=== PATIENT | male | born 1930 | race Caucasian/White ===

== ENCOUNTER 2018-09-08 22:54 | Inpatient (IN) | payer BC ==
[~2018-09-08] VITALS: Ht 170.2 cm; Wt 69.1 kg
[2018-09-08] MEDS ORDERED: SOD CHLORIDE 0.9% 1,000 ML IV STA (23:08)
[2018-09-08] MEDS ORDERED: ONDANSETRON 4 MG INJ IV STA (23:08)
[2018-09-08] MEDS ORDERED: SODIUM CHLORIDE 0.9% 1L BAG IV* STA (23:19)
[2018-09-08] MEDS ORDERED: CEFEPIME 1GM/50 ML (PMX) 50 ML IVPB ONE (23:30)
--- NOTE | 2018-09-08 23:44 | ERD ---
ER Documentation Chief Complaint Chief Complaint theresa ra from con home for aloc, weakness, has recent dx of sepsis HPI 88-year-old man brought in by EMS from longterm for increasing weakness and lethargy and fever times 2 days. Discharged from [facility] about a week ago after being diagnosed with sepsis and UTI, he was treated with IV antibiotics at [facility] and then started on oral antibiotics in the longterm for fever yesterday. His Jason catheter was replaced about 2 weeks ago. He has had no cough, no vomiting, no complaints of chest pain or shortness of breath. Patient normally does not ambulate but daughter who is at the bedside states he normally converses more ROS All systems reviewed and are negative except as per history of present illness. Medications Home Meds Reported Medications Tramadol Hcl* (Ultram*) 50 Mg Tablet, 50 MG PO Q6H PRN for PAIN, TAB 09/09/18 Tamsulosin Hcl* (Flomax*) 0.4 Mg Cap.er.24h, 0.4 MG PO BID, CAP 09/09/18 Vitamin B Complex (B Complex # 1) 1 Each Tablet, 1 EACH PO DAILY, TAB 09/09/18 Sodium Bicarbonate (Na Bicarbonate) 650 Mg Tab, 650 MG PO TID, TAB 09/09/18 Quetiapine Fumarate* (Seroquel*) 200 Mg Tablet, 200 MG PO HS, #30 TAB 09/09/18 Quetiapine Fumarate* (Seroquel*) 25 Mg Tablet, 12.5 MG PO DAILY PRN for AGITATION, #60 TAB 09/09/18 Protein Supplement (Promod) 946 Ml Liquid, 30 ML PO TID 09/09/18 Omeprazole* (Omeprazole*) 40 Mg Capsule.dr, 40 MG PO DAILY, #30 CAP 09/09/18 Multivitamins (MVI ADULT) 10 Ml Soln, 30 ML G-TUBE DAILY 09/09/18 Multivitamins* (Theragran*) 1 Tab Tab, 1 TAB PO DAILY, TAB 09/09/18 Midodrine HCl (Midodrine HCl) 2.5 Mg Tablet, 2.5 MG PO TID, TAB 09/09/18 Metoprolol Succinate* (Toprol XL*) 25 Mg Tab.sr.24h, 12.5 MG PO DAILY, #30 TAB 09/09/18 Melatonin (MELADOX) 3 Mg Tablet.er, 3 MG G-TUBE PRN for INSOMNIA, TAB 09/09/18 Magnesium Oxide* (Magnesium Oxide*) 400 Mg Tablet, 400 MG PO BID, TAB 09/09/18 Nitrofurantoin Monohyd Macrocr* (Macrobid*) 100 Mg Capsr, 100 MG PO BID, CAP 09/09/18 Furosemide* (Furosemide*) 20 Mg Tablet, 20 MG PO DAILY, #60 TAB 09/09/18 Lactulose* (Lactulose*) 20 Gm/30 Ml Solution, 15 GM PO TID PRN for CONSTIPATION, ML 09/09/18 Folic Acid* (Folic Acid*) 1 Mg Tablet, 1 MG PO DAILY, TAB 09/09/18 Finasteride* (Finasteride*) 5 Mg Tablet, 5 MG PO DAILY, TAB 09/09/18 Donepezil* (Donepezil*) 5 Mg Tablet, 5 MG PO DAILY, #30 TAB 09/09/18 Bisacodyl* (Dulcolax*) 5 Mg Tablet.dr, 10 MG RECTAL DAILY PRN for CONSTIPATION, TAB 09/09/18 Magnesium Hydroxide* (Milk Of Magnesia*) 400 Mg/5 Ml Oral.susp, 30 ML PO DAILY PRN for CONSTIPATION, ML 09/09/18 Atorvastatin* (Atorvastatin*) 40 Mg Tablet, 20 MG PO QHS, #30 TAB 09/09/18 Aspirin* (Aspirin*) 325 Mg Tablet, 81 MG PO DAILY, TAB 09/09/18 Acetaminophen* (Acetaminophen*) 650 Mg Tablet, 650 MG PO Q6H PRN for PAIN, #30 TAB 09/09/18 Allergies Allergies: Coded Allergies: No Known Allergy (Unverified , 09/08/18) PMhx/Soc Recent sepsis, hypertension FmHx Family History: No diabetes Physical Exam Vitals Vital Signs Date Temp Pulse Resp B/P (MAP) Pulse Ox O2 O2 Flow FiO2 Time Delivery Rate 09/09/18 99.6 100 26 142/72 96 Room Air 00:28 (95) 09/09/18 Nasal 00:28 Cannula 09/08/18 99.6 110 29 134/81 93 22:59 (98) Physical Exam GENERAL: Elderly, chronically debilitated man, febrile, nontoxic in appearance HEENT: Dry mucous membranes, pink conjunctiva, no cervical spine tenderness NEURO: Alert and oriented 3, cranial nerves II through XII intact bilaterally, pupils equal round reactive to light CARDIAC: Tachycardic and regular LUNGS: Clear bilaterally no wheezing crackles or stridor ABDOMEN: Soft nontender, no guarding, no rigidity, no rebound, no psoas sign no obturator sign. SKIN: Hot and dry to touch, no abrasions, contusions, or hematomas, no lacerations, no ecchymosis, no target lesions, and without ulcers EXTREMITIES: No clubbing cyanosis or edema, calves are bilaterally symmetrical, no Homans sign, no popliteal cord sign. Distal pulses equal and bilateral PSYCH: Normal affect without agitation or irritability Result Diagram: 09/08/18230909/08/182309 Results 24 hrs Laboratory Tests Test 09/08/18 23:10 White Blood Count 10.5 10^3/ul Red Blood Count 2.75 10^6/ul Hemoglobin 8.3 g/dl Hematocrit 25.8 % Mean Corpuscular Volume 93.8 fl Mean Corpuscular Hemoglobin 30.2 pg Mean Corpuscular Hemoglobin Concent 32.2 g/dl Red Cell Distribution Width 13.7 % Platelet Count 198 10^3/UL Mean Platelet Volume 9.2 fl Immature Granulocytes % 7.400 % Neutrophils % 65.8 % Segmented Neutrophils % (Manual) 53 % Band Neutrophils % (Manual) 4 % Lymphocytes % 15.7 % Lymphocytes % (Manual) 28 % Monocytes % 9.6 % Monocytes % (Manual) 7 % Eosinophils % 1.1 % Eosinophils % (Manual) 3 % Basophils % 0.4 % Basophils % (Manual) 1 % Metamyelocytes % (manual) 1 % Myelocytes % (Manual) 3 % Nucleated Red Blood Cells % 0.5 /100WBC Immature Granulocytes # 0.780 10^3/ul Neutrophils # 6.9 10^3/ul Neutrophils # (Manual) 5.6 10^3/ul Band Neutrophils # 0.4 10^3/ul Lymphocytes (Manual) 2.9 10^3/ul Lymphocytes # 1.6 10^3/ul Monocytes # 1.0 10^3/ul Monocytes # (Manual) 0.7 10^3/ul Eosinophils # 0.1 10^3/ul Basophils # 0.0 10^3/ul Basophils # (Manual) 0.1 10^3/ul Metamyelocytes # 0.1 10^3/ul Myelocytes # 0.3 10^3/ul Nucleated Red Blood Cells # 0.1 10^3/ul Platelet Estimate NORMAL Giant Platelets 1 % Polychromasia 1+ Anisocytosis 1+ Microcytosis 1+ Sodium Level 142 mmol/L Potassium Level 5.5 mmol/L Chloride Level 100 mmol/L Carbon Dioxide Level 30 mmol/L Anion Gap 12 Blood Urea Nitrogen 111 mg/dl Creatinine 3.77 mg/dl Est Glomerular Filtrat Rate mL/min mL/min Glucose Level 132 mg/dl Calcium Level 12.0 mg/dl Total Bilirubin 0.3 mg/dl Direct Bilirubin 0.00 mg/dl Indirect Bilirubin 0.3 mg/dl Aspartate Amino Transf (AST/SGOT) 185 IU/L Alanine Aminotransferase (ALT/SGPT) 145 IU/L Alkaline Phosphatase 365 IU/L Troponin I 0.095 ng/ml Total Protein 7.0 g/dl Albumin 3.4 g/dl Globulin 3.60 g/dl Albumin/Globulin Ratio 0.94 Lipase 201 U/L Current Medications Medications Dose Sig/Hannah Start Time Status Last (Trade) Ordered Route PRN Stop Time Admin Dose Reason Admin Sodium 1,000 ml @ Q1H STAT 09/08/18 DC 09/08/18 Chloride 1,000 mls/hr IV 23:08 23:57 09/09/18 00:07 Ondansetron 4 mg ONCE STAT 09/08/18 DC 09/08/18 HCl (Zofran IV 23:08 23:56 Inj) 09/08/18 23:09 Sodium 2,400 ml BOLUS OVER 2 09/08/18 DC 09/08/18 Chloride HOURS STAT 23: 23:57 (NS) IV* 09/08/18 23:25 Cefepime HCl 50 ml @ ONCE ONCE 09/08/18 DC 09/08/18 100 mls/hr IVPB 23:30 23:56 09/08/18 23:59 Albuterol 5 mg ONCE STAT 09/09/18 DC (Proventil HHN 00:26 0.083% (Neb)) 09/09/18 00:27 Procedures/MDM IV line was established patient was placed on environmental monitoring technician rhythm strip revealed a sinus tachycardia at 110 bpm with upright P and T waves. Patient was febrile. Blood and urine cultures have been ordered results are pending I will follow-up. I suspect his abnormal vital signs are due to dehydration and not sepsis. I administered 2 L normal saline IV, ibuprofen via G-tube, cefepime 1 g IV EKG performed, read by me revealed a sinus tachycardia at 104 bpm, left axis deviation, right bundle branch block, no concerning ST elevations or depressions noted 1 view chest x-ray performed, read by me revealed a right lower lobe infiltrate, no pneumothorax, no air under the diaphragm CT scan of the abdomen and pelvis was performed,IMPRESSION: Enlarged prostate with polypoid extensions along the posterior aspect of the urinary bladder. Findings are worrisome for neoplasm. Distension of the urinary bladder with bilateral hydronephrosis and hydroureter, which may be related to outlet obstruction. Diffuse colonic stool burden, most prominent in the rectum. Sigmoid and descending colon diverticulosis. No evidence of acute diverticulitis. CBC reveals anemia with a hemoglobin of 8.3, electrolytes revealed dehydration and acute kidney injury with a BUN/creatinine of 111/3.8, potassium elevated at 5.5 liver function tests revealed transaminitis. Urine analysis is positive for infection. Patient will be admitted to [facility] for continued IV hydration and antibiotics Departure Diagnosis: Primary Impression: Acute UTI Additional Impressions: Anemia Anemia type: unspecified type Qualified Codes: D64.9 - Anemia, unspecified Dehydration Acute encephalopathy Acute kidney injury Acute hyperkalemia Condition: MELINA Goff MD Sep 08, 2018 23:44
[2018-09-09] MEDS ORDERED: ALBUTEROL 0.083% (NEB) 2.5 MG/3 ML AMP HHN STA (00:26)
[2018-09-09 04:10] VITALS: BP 121/58; PULSE 96; RESP 17
[2018-09-09 04:48] VITALS: Ht 170.2 cm; Wt 69.1 kg
[2018-09-09] MEDS ORDERED: ATOR40TA68 PO (05:30)
[2018-09-09] MEDS ORDERED: ASPI325T30 PO (05:30)
[2018-09-09] MEDS ORDERED: ACET-2047 PO (05:30)
[2018-09-09] MEDS ORDERED: FOLI-49 PO (05:35)
[2018-09-09] MEDS ORDERED: DONE5TAB7 PO (05:35)
[2018-09-09] MEDS ORDERED: MAGN400O19 PO (05:35)
[2018-09-09] MEDS ORDERED: FINA5TAB4 PO (05:35)
[2018-09-09] MEDS ORDERED: BISA-57 RECTAL (05:35)
[2018-09-09] MEDS ORDERED: NITR-58 PO (05:41)
[2018-09-09] MEDS ORDERED: MAGN400T28 PO (05:41)
[2018-09-09] MEDS ORDERED: MELA3TAB29 G-TUBE (05:41)
[2018-09-09] MEDS ORDERED: LACT20SO2 PO (05:41)
[2018-09-09] MEDS ORDERED: FURO20TA3 PO (05:41)
[2018-09-09] MEDS ORDERED: METO-335 PO (05:41)
[2018-09-09] MEDS ORDERED: MVI G-TUBE (05:45)
[2018-09-09] MEDS ORDERED: MULTI PO (05:45)
[2018-09-09] MEDS ORDERED: MIDO2.5T PO (05:45)
[2018-09-09] MEDS ORDERED: OMEP40CA6 PO (05:49)
[2018-09-09] MEDS ORDERED: PROT946L PO (05:49)
[2018-09-09] MEDS ORDERED: QUET25TA PO (05:53)
[2018-09-09] MEDS ORDERED: VITA1TAB83 PO (05:53)
[2018-09-09] MEDS ORDERED: TRAM50TA PO (05:53)
[2018-09-09] MEDS ORDERED: QUET200T PO (05:53)
[2018-09-09] MEDS ORDERED: SODI650T PO (05:53)
[2018-09-09] MEDS ORDERED: TAMS-14 PO (05:53)
[2018-09-09] MEDS ORDERED: PIPER-TAZO 3.375 GM IV (PMX) 100 ML IVPB SCH ×2 (06:00)
[2018-09-09] MEDS: PIPER-TAZO 2.25 GM (PMX) 50 ML IVPB SCH ×3 (06:31→22:07)
[2018-09-09 08:00] VITALS: BP 123/67; PULSE 97; RESP 20
[2018-09-09] MEDS ORDERED: MAGNESIUM HYDROXIDE 30ML CUP PO PRN (08:00)
[2018-09-09] MEDS ORDERED: ACETAMINOPHEN 325 MG TAB PO PRN (08:00)
[2018-09-09] MEDS ORDERED: LACTULOSE 30ML CUP PO PRN (08:00)
[2018-09-09] MEDS ORDERED: BISACODYL (EC) 5 MG TAB PO PRN (08:00)
[2018-09-09] MEDS ORDERED: MAGNESIUM HYDROXIDE 30ML CUP GTB PRN (08:16)
[2018-09-09] MEDS ORDERED: LACTULOSE 30ML CUP GTB PRN (08:16)
[2018-09-09] MEDS: MIDODRINE 2.5 MG TAB GTB SCH ×3 (09:00→18:00)
[2018-09-09] MEDS ORDERED: FUROSEMIDE 20 MG TAB GTB SCH (09:00)
[2018-09-09] MEDS ORDERED: METOPROLOL (XL) 25 MG TAB PO SCH (09:00)
[2018-09-09] MEDS: MAGNESIUM OXIDE 400 MG TAB GTB SCH ×2 (09:52→22:08)
[2018-09-09] MEDS: FINASTERIDE 5 MG TAB GTB SCH (09:52)
[2018-09-09] MEDS: DONEPEZIL 5 MG TAB GTB SCH (09:52)
[2018-09-09] MEDS: ASPIRIN 81 MG TAB GTB SCH (09:52)
[2018-09-09] MEDS: FOLIC ACID 1 MG TAB GTB SCH (09:53)
[2018-09-09] MEDS ORDERED: QUETIAPINE 25 MG TAB PO PRN (10:30)
[2018-09-09] MEDS: SOD CHLORIDE 0.9% 1,000 ML IV SCH ×2 (10:44→22:57)
[2018-09-09] MEDS: TAMSULOSIN (SR) 0.4 MG CAP PO SCH ×2 (10:44→22:07)
--- NOTE | 2018-09-09 12:31 | CONS ---
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 If Jason Cath. was blocked vs Chronic [place] - Hypercalcemia ? secondary to Underlying cancer / Dehydration - For now continue with Jason catheter - Monitor UO closely - Check URIC ACID - Check PTH - Check PHOS - Check total CK - Check FENa - Check Eosinophilia - IVF NS 0.9% continuer - Recheck Labs later today to monitor potassium - Needs work up for Neoplasm THANK YOU Camille ALCALA Consultation Date/Type/Reason Admit Date/Time Sep 09, 2018 at 00:34 Date of Consultation: Sep 09, 2018 Type of Consult - NEPHROLOGY Reason for Consultation - Acute Kidney Injury Date/Time of Note DATE: 09/09/18 TIME: 12:21 Hx of Present Illness 88-year-old man brought in by EMS from retirement for increasing weakness and lethargy and fever times 2 days. Discharged from [facility] about a week ago after being diagnosed with sepsis and UTI, he was treated with IV antibiotics at [facility] and then started on oral antibiotics in the retirement for fever yesterday. [facility] admission was for ~ 4 weeks. His Jason catheter was replaced about 2 weeks ago. According to the son he had no UO at the [facility] about 24 hours. Subjective hx not possible: pt non-verbal Constitutional: no complaints Eyes: no complaints Musculoskeletal: no complaints Past Medical History Medical History: cancer, coronary artery disease, hypertension Home Meds Reported Medications Tramadol Hcl* (Ultram*) 50 Mg Tablet, 50 MG PO Q6H PRN for PAIN, TAB 09/09/18 Tamsulosin Hcl* (Flomax*) 0.4 Mg Cap.er.24h, 0.4 MG PO BID, CAP 09/09/18 Vitamin B Complex (B Complex # 1) 1 Each Tablet, 1 EACH PO DAILY, TAB 09/09/18 Sodium Bicarbonate (Na Bicarbonate) 650 Mg Tab, 650 MG PO TID, TAB 09/09/18 Quetiapine Fumarate* (Seroquel*) 200 Mg Tablet, 200 MG PO HS, #30 TAB 09/09/18 Quetiapine Fumarate* (Seroquel*) 25 Mg Tablet, 12.5 MG PO DAILY PRN for AGITATION, #60 TAB 09/09/18 Protein Supplement (Promod) 946 Ml Liquid, 30 ML PO TID 09/09/18 Omeprazole* (Omeprazole*) 40 Mg Capsule.dr, 40 MG PO DAILY, #30 CAP 09/09/18 Multivitamins (MVI ADULT) 10 Ml Soln, 30 ML G-TUBE DAILY 09/09/18 Multivitamins* (Theragran*) 1 Tab Tab, 1 TAB PO DAILY, TAB 09/09/18 Metoprolol Succinate* (Toprol XL*) 25 Mg Tab.sr.24h, 12.5 MG PO DAILY, #30 TAB 09/09/18 Melatonin (MELADOX) 3 Mg Tablet.er, 3 MG G-TUBE PRN for INSOMNIA, TAB 09/09/18 Magnesium Oxide* (Magnesium Oxide*) 400 Mg Tablet, 400 MG PO BID, TAB 09/09/18 Furosemide* (Furosemide*) 20 Mg Tablet, 20 MG PO DAILY, #60 TAB 09/09/18 Lactulose* (Lactulose*) 20 Gm/30 Ml Solution, 15 GM PO TID PRN for CONSTIPATION, ML 09/09/18 Folic Acid* (Folic Acid*) 1 Mg Tablet, 1 MG PO DAILY, TAB 09/09/18 Finasteride* (Finasteride*) 5 Mg Tablet, 5 MG PO DAILY, TAB 09/09/18 Bisacodyl* (Dulcolax*) 5 Mg Tablet.dr, 10 MG RECTAL DAILY PRN for CONSTIPATION, TAB 09/09/18 Magnesium Hydroxide* (Milk Of Magnesia*) 400 Mg/5 Ml Oral.susp, 30 ML PO DAILY PRN for CONSTIPATION, ML 09/09/18 Atorvastatin* (Atorvastatin*) 40 Mg Tablet, 20 MG PO QHS, #30 TAB 09/09/18 Aspirin* (Aspirin*) 325 Mg Tablet, 81 MG PO DAILY, TAB 09/09/18 Acetaminophen* (Acetaminophen*) 650 Mg Tablet, 650 MG PO Q6H PRN for PAIN, #30 TAB 09/09/18 Discontinued Reported Medications Midodrine HCl (Midodrine HCl) 2.5 Mg Tablet, 2.5 MG PO TID, TAB 09/09/18 Nitrofurantoin Monohyd Macrocr* (Macrobid*) 100 Mg Capsr, 100 MG PO BID, CAP 09/09/18 Donepezil* (Donepezil*) 5 Mg Tablet, 5 MG PO DAILY, #30 TAB 09/09/18 Medications Current Medications Piperacillin Sod/ Tazobactam Sod 50 ml @ 100 mls/hr Q8 IVPB Last administered on 09/09/18at 06:31; Admin Dose 100 MLS/HR; Start 09/09/18 at 06:00 Aspirin (Aspirin) 81 mg DAILY GTB Last administered on 09/09/18at 09:52; Admin Dose 81 MG; Start 09/09/18 at 09:00 Bisacodyl (Dulcolax) 10 mg DAILY PRN PO CONSTIPATION; Start 09/09/18 at 08:00 Donepezil HCl (Aricept) 5 mg DAILY GTB Last administered on 09/09/18at 09:52; Admin Dose 5 MG; Start 09/09/18 at 09:00 Finasteride (Proscar) 5 mg DAILY GTB Last administered on 09/09/18at 09:52; Admin Dose 5 MG; Start 09/09/18 at 09:00 Folic Acid (Folic Acid) 1 mg DAILY GTB Last administered on 09/09/18at 09:53; Admin Dose 1 MG; Start 09/09/18 at 09:00 Magnesium Oxide (Mag-Ox 400) 400 mg BID GTB Last administered on 09/09/18at 09:52; Admin Dose 400 MG; Start 09/09/18 at 09:00 Metoprolol Succinate (Toprol Xl) 12.5 mg DAILY PO ; Start 09/09/18 at 09:00; Status Hold Midodrine (Proamatine) 2.5 mg TID@0600,1200,1800 GTB ; Start 09/09/18 at 09:00 Acetaminophen (Tylenol Tab) 650 mg Q6H PRN GTB PAIN; Start 09/09/18 at 08:14 Lactulose (Enulose) 15 gm TID PRN GTB CONSTIPATION; Start 09/09/18 at 08:16 Magnesium Hydroxide (Milk Of Mag) 30 ml DAILY PRN GTB CONSTIPATION; Start 09/09/18 at 08:16 Metoprolol Tartrate (Lopressor) 25 mg BID GTB ; Start 09/09/18 at 21:00 Sodium Chloride 1,000 ml @ 100 mls/hr Q10H IV Last administered on 09/09/18at 10:44; Admin Dose 100 MLS/HR; Start 09/09/18 at 10:30 Quetiapine Fumarate (Seroquel) 12.5 mg DAILY PRN PO AGITATION; Start 09/09/18 at 10:30 Quetiapine Fumarate (Seroquel) 200 mg HS PO ; Start 09/09/18 at 21:00 Sodium Bicarbonate (Sodium Bicarbonate Tab) 650 mg TID PO ; Start 09/09/18 at 13:00 Tamsulosin HCl (Flomax) 0.4 mg BID PO Last administered on 09/09/18at 10:44; Admin Dose 0.4 MG; Start 09/09/18 at 10:30 Menthol/Methyl Salicylate (Baltazar Pineda) 1 applic TID TOP ; Start 09/09/18 at 13:00 Allergies: Coded Allergies: No Known Allergy (Unverified , 09/08/18) Past Surgical History Past Surgical Hx: other Family History Significant Family History: no pertinent family hx Social History Alcohol Use: none Smoking Status: Never smoker Drug Use: none Exam/Review of Systems Exam Vitals Vital Signs Date Temp Pulse Resp B/P (MAP) Pulse Ox O2 O2 Flow FiO2 Time Delivery Rate 09/09/18 Nasal 4.0 08:10 Cannula 09/09/18 98.3 97 20 123/67 93 08:00 (85) Intake and Output 09/08/18 09/08/18 09/09/18 1515:00 23:00 07:00 IntakeIntake Total 3450 ml BalanceBalance 3450 ml Constitutional: non-verbal, distress Psych: no complaints Head: normocephalic Respiratory: crackles/rales Cardiovascular: systolic murmur Gastrointestinal: soft Results Result Diagram: 09/08/18 2310 09/08/18 2310 Results 24hrs Laboratory Tests Test 09/08/18 23:10 09/09/18 00:30 White Blood Count 10.5 Red Blood Count 2.75 L Hemoglobin 8.3 L Hematocrit 25.8 L Mean Corpuscular Volume 93.8 Mean Corpuscular Hemoglobin 30.2 Mean Corpuscular Hemoglobin Concent 32.2 Red Cell Distribution Width 13.7 Platelet Count 198 Mean Platelet Volume 9.2 Immature Granulocytes % 7.400 H Neutrophils % 65.8 Segmented Neutrophils % (Manual) 53 Band Neutrophils % (Manual) 4 Lymphocytes % 15.7 Lymphocytes % (Manual) 28 Monocytes % 9.6 Monocytes % (Manual) 7 Eosinophils % 1.1 Eosinophils % (Manual) 3 Basophils % 0.4 Basophils % (Manual) 1 Metamyelocytes % (manual) 1 H Myelocytes % (Manual) 3 H Nucleated Red Blood Cells % 0.5 H Immature Granulocytes # 0.780 H Neutrophils # 6.9 Neutrophils # (Manual) 5.6 Band Neutrophils # 0.4 Lymphocytes (Manual) 2.9 Lymphocytes # 1.6 Monocytes # 1.0 H Monocytes # (Manual) 0.7 Eosinophils # 0.1 Basophils # 0.0 Basophils # (Manual) 0.1 H Metamyelocytes # 0.1 H Myelocytes # 0.3 H Nucleated Red Blood Cells # 0.1 H Platelet Estimate NORMAL Giant Platelets 1 H Polychromasia 1+ Anisocytosis 1+ Microcytosis 1+ Sodium Level 142 Potassium Level 5.5 H Chloride Level 100 Carbon Dioxide Level 30 Anion Gap 12 Blood Urea Nitrogen 111 H Creatinine 3.77 H Est Glomerular Filtrat Rate mL/min Glucose Level 132 Calcium Level 12.0 H Total Bilirubin 0.3 Direct Bilirubin 0.00 Indirect Bilirubin 0.3 Aspartate Amino Transf (AST/SGOT) 185 H Alanine Aminotransferase (ALT/SGPT) 145 H Alkaline Phosphatase 365 H Troponin I 0.095 Total Protein 7.0 Albumin 3.4 Globulin 3.60 H Albumin/Globulin Ratio 0.94 Lipase 201 Urine Color MARYCARMEN Urine Clarity CLOUDY A Urine pH 6.0 Urine Specific [place] 1.011 Urine Ketones NEGATIVE Urine Nitrite NEGATIVE Urine Bilirubin NEGATIVE Urine Urobilinogen NEGATIVE Urine Leukocyte Esterase 3+ H Urine Microscopic RBC > 182 H Urine Microscopic WBC > 182 H Urine Bacteria MANY A Urine Mucus FEW A Urine Hemoglobin 3+ H Urine Glucose NEGATIVE Urine Total Protein 2+ H Medications Medication Current Medications Piperacillin Sod/ Tazobactam Sod 50 ml @ 100 mls/hr Q8 IVPB Last administered on 09/09/18at 06:31; Admin Dose 100 MLS/HR; Start 09/09/18 at 06:00 Aspirin (Aspirin) 81 mg DAILY GTB Last administered on 09/09/18at 09:52; Admin Dose 81 MG; Start 09/09/18 at 09:00 Bisacodyl (Dulcolax) 10 mg DAILY PRN PO CONSTIPATION; Start 09/09/18 at 08:00 Donepezil HCl (Aricept) 5 mg DAILY GTB Last administered on 09/09/18at 09:52; Admin Dose 5 MG; Start 09/09/18 at 09:00 Finasteride (Proscar) 5 mg DAILY GTB Last administered on 09/09/18at 09:52; Admin Dose 5 MG; Start 09/09/18 at 09:00 Folic Acid (Folic Acid) 1 mg DAILY GTB Last administered on 09/09/18at 09:53; Admin Dose 1 MG; Start 09/09/18 at 09:00 Magnesium Oxide (Mag-Ox 400) 400 mg BID GTB Last administered on 09/09/18at 09:52; Admin Dose 400 MG; Start 09/09/18 at 09:00 Metoprolol Succinate (Toprol Xl) 12.5 mg DAILY PO ; Start 09/09/18 at 09:00; Status Hold Midodrine (Proamatine) 2.5 mg TID@0600,1200,1800 GTB ; Start 09/09/18 at 09:00 Acetaminophen (Tylenol Tab) 650 mg Q6H PRN GTB PAIN; Start 09/09/18 at 08:14 Lactulose (Enulose) 15 gm TID PRN GTB CONSTIPATION; Start 09/09/18 at 08:16 Magnesium Hydroxide (Milk Of Mag) 30 ml DAILY PRN GTB CONSTIPATION; Start 09/09/18 at 08:16 Metoprolol Tartrate (Lopressor) 25 mg BID GTB ; Start 09/09/18 at 21:00 Sodium Chloride 1,000 ml @ 100 mls/hr Q10H IV Last administered on 09/09/18at 10:44; Admin Dose 100 MLS/HR; Start 09/09/18 at 10:30 Quetiapine Fumarate (Seroquel) 12.5 mg DAILY PRN PO AGITATION; Start 09/09/18 at 10:30 Quetiapine Fumarate (Seroquel) 200 mg HS PO ; Start 09/09/18 at 21:00 Sodium Bicarbonate (Sodium Bicarbonate Tab) 650 mg TID PO ; Start 09/09/18 at 13:00 Tamsulosin HCl (Flomax) 0.4 mg BID PO Last administered on 09/09/18at 10:44; Admin Dose 0.4 MG; Start 09/09/18 at 10:30 Menthol/Methyl Salicylate (Baltazar Pineda) 1 applic TID TOP ; Start 09/09/18 at 13:00 JANIA SCHWARZ MD Sep 09, 2018 12:31
[2018-09-09] MEDS: MENTHOL/METH SALICYLATE 30 GM OINT TOP SCH ×2 (12:34→22:09)
[2018-09-09] MEDS: NA BICARBONATE 650 MG TAB PO SCH ×2 (12:36→22:07)
[2018-09-09 13:48] VITALS: BP 138/63; PULSE 91; RESP 16
[2018-09-09 20:00] VITALS: BP 127/64; PULSE 112; RESP 17
[2018-09-09] MEDS ORDERED: ATORVASTATIN 20 MG TAB GTB SCH (21:00)
[2018-09-09] MEDS: QUETIAPINE 100 MG TAB PO SCH (22:07)
[2018-09-09] MEDS: BALSAM PERU/CASTOR OIL 60 GM TUBE TOP SCH (22:08)
[2018-09-09] MEDS: METOPROLOL 25 MG TAB GTB SCH (22:08)
[2018-09-09] MEDS: ACETAMINOPHEN 325 MG TAB GTB PRN (22:11)
[2018-09-09] MEDS ORDERED: SOD CHLORIDE 0.9% 250 ML IV ONE (22:30)
[2018-09-09] MEDS ORDERED: VANCOMYCIN 1 GM (PMX) 250 ML IVPB ONE (22:30)
[2018-09-10] VITALS (7 sets, daily range): BP systolic 111–152; BP diastolic 60–67; PULSE 84–108; RESP 16–20
[2018-09-10] MEDS: PIPER-TAZO 2.25 GM (PMX) 50 ML IVPB SCH ×3 (05:58→22:13)
[2018-09-10] MEDS: MIDODRINE 2.5 MG TAB GTB SCH ×3 (05:59→18:00)
[2018-09-10] MEDS: SOD CHLORIDE 0.9% 1,000 ML IV SCH ×2 (06:30→12:02)
[2018-09-10] MEDS: MAGNESIUM OXIDE 400 MG TAB GTB SCH (09:00)
[2018-09-10] MEDS: NA BICARBONATE 650 MG TAB PO SCH ×3 (09:21→22:04)
[2018-09-10] MEDS: FINASTERIDE 5 MG TAB GTB SCH (09:21)
[2018-09-10] MEDS: METOPROLOL 25 MG TAB GTB SCH ×3 (09:22→22:06)
[2018-09-10] MEDS: FOLIC ACID 1 MG TAB GTB SCH (09:22)
[2018-09-10] MEDS: DONEPEZIL 5 MG TAB GTB SCH (09:22)
[2018-09-10] MEDS: ASPIRIN 81 MG TAB GTB SCH (09:22)
[2018-09-10] MEDS: TAMSULOSIN (SR) 0.4 MG CAP PO SCH ×2 (09:22→22:04)
[2018-09-10] MEDS: MENTHOL/METH SALICYLATE 30 GM OINT TOP SCH ×3 (09:23→22:07)
[2018-09-10] MEDS: BALSAM PERU/CASTOR OIL 60 GM TUBE TOP SCH ×2 (09:23→22:08)
--- NOTE | 2018-09-10 10:32 | PN ---
Date/Time of Note Date/Time of Note DATE: 09/10/18 TIME: 10:28 Subjective Patient remains confused. Occasionally moaning Objective Vitals Vital Signs Date Temp Pulse Resp B/P (MAP) Pulse Ox O2 O2 Flow FiO2 Time Delivery Rate 09/10/18 99.8 108 16 139/63 95 Nasal 3.0 09:29 (88) Cannula Intake and Output 09/09/18 09/09/18 09/10/18 1515:00 23:00 07:00 IntakeIntake Total 100 ml 1650 ml 1150 ml OutputOutput Total 2000 ml BalanceBalance 100 ml -350 ml 1150 ml Lungs clear to auscultation bilaterally Cardiac regular rate and rhythm Abdomen soft nontender nondistended normoactive bowel sounds No clubbing cyanosis or edema Moves all extremities Results Result Diagram: 09/08/18 2310 09/10/18 0433 Medications Medications Current Medications Piperacillin Sod/ Tazobactam Sod 50 ml @ 100 mls/hr Q8 IVPB Last administered on 09/10/18at 05:58; Admin Dose 100 MLS/HR; Start 09/09/18 at 06:00 Aspirin (Aspirin) 81 mg DAILY GTB Last administered on 09/10/18at 09:22; Admin Dose 81 MG; Start 09/09/18 at 09:00 Bisacodyl (Dulcolax) 10 mg DAILY PRN PO CONSTIPATION; Start 09/09/18 at 08:00 Donepezil HCl (Aricept) 5 mg DAILY GTB Last administered on 09/10/18at 09:22; Admin Dose 5 MG; Start 09/09/18 at 09:00 Finasteride (Proscar) 5 mg DAILY GTB Last administered on 09/10/18at 09:21; Admin Dose 5 MG; Start 09/09/18 at 09:00 Folic Acid (Folic Acid) 1 mg DAILY GTB Last administered on 09/10/18at 09:22; Admin Dose 1 MG; Start 09/09/18 at 09:00 Magnesium Oxide (Mag-Ox 400) 400 mg BID GTB Last administered on 09/09/18at 22:08; Admin Dose 400 MG; Start 09/09/18 at 09:00 Metoprolol Succinate (Toprol Xl) 12.5 mg DAILY PO ; Start 09/09/18 at 09:00; Status Hold Midodrine (Proamatine) 2.5 mg TID@0600,1200,1800 GTB ; Start 09/09/18 at 09:00 Acetaminophen (Tylenol Tab) 650 mg Q6H PRN GTB PAIN Last administered on 09/09/18at 22:11; Admin Dose 650 MG; Start 09/09/18 at 08:14 Lactulose (Enulose) 15 gm TID PRN GTB CONSTIPATION; Start 09/09/18 at 08:16 Magnesium Hydroxide (Milk Of Mag) 30 ml DAILY PRN GTB CONSTIPATION; Start 09/09/18 at 08:16 Metoprolol Tartrate (Lopressor) 25 mg BID GTB Last administered on 09/10/18 09:32; Admin Dose 25 MG; Start 09/09/18 at 21:00 Sodium Chloride 1,000 ml @ 100 mls/hr Q10H IV Last administered on 09/09/18at 22:57; Admin Dose 100 MLS/HR; Start 09/09/18 at 10:30 Quetiapine Fumarate (Seroquel) 12.5 mg DAILY PRN PO AGITATION; Start 09/09/18 at 10:30 Quetiapine Fumarate (Seroquel) 200 mg HS PO Last administered on 09/09/18 22:07; Admin Dose 200 MG; Start 09/09/18 at 21:00 Sodium Bicarbonate (Sodium Bicarbonate Tab) 650 mg TID PO Last administered on 09/10/18 09:21; Admin Dose 650 MG; Start 09/09/18 at 13:00 Tamsulosin HCl (Flomax) 0.4 mg BID PO Last administered on 09/10/18 09:22; Admin Dose 0.4 MG; Start 09/09/18 at 10:30 Menthol/Methyl Salicylate (Baltazar Pineda) 1 applic TID TOP Last administered on 09/10/18 09:23; Admin Dose 1 APPLIC; Start 09/09/18 at 13:00 VTE Prophylaxis Risk score (from Nsg)>0 risk: 3 SCD applied (from Nsg): Yes Lines/Catheters IV Catheter Type: Saline Lock Rain in Place: Yes Cont'd rain catheter reason: terminal illness/intractable pain Assessment/Plan Assessment/Plan 88-year-old male with polymicrobial bacteremia Recurrent UTI Metabolic encephalopathy Acute on chronic kidney injury Renal cell carcinoma Benign prostatic hyperplasia Hyperphosphatemia DNR CODE STATUS. POLST form was signed Continue IV Zosyn Check final urine and blood culture results Monitor renal function Nephrology and palliative care follow-up PEPE POLANCO MD Sep 10, 2018 10:32
[2018-09-10] MEDS ORDERED: VANCOMYCIN IV PER PHARMACY XX SCH (11:00)
[2018-09-10] MEDS: ACETAMINOPHEN 325 MG TAB GTB PRN ×2 (12:28→22:21)
--- NOTE | 2018-09-10 17:54 | CONS ---
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 If Jason Cath. was blocked vs Chronic [place] - Hypercalcemia ? secondary to Underlying cancer / Dehydration - For now continue with Jason catheter - Monitor UO closely - Check URIC ACID - Check PTH - Check PHOS - Check total CK - Check FENa - Check Eosinophilia - IVF NS 0.9% continuer - Recheck Labs later today to monitor potassium - Needs work up for Neoplasm - Stable JAY - Renal slightly improved - High URIC ACID ( ? if can take PO Meds ) Has been confused - Follow up with PTH - Follow up with PHOS ( start Renvela powder via PEG TID ) Consultation Date/Type/Reason Admit Date/Time Sep 09, 2018 at 00:34 Initial Consult Date 09/09/18 Type of Consult - NEPHROLOGY Date/Time of Note DATE: 09/10/18 TIME: 17:53 24 HR Interval Summary Subjective hx not possible: pt non-verbal Constitutional: disoriented Exam/Review of Systems Exam Vitals Vital Signs Date Temp Pulse Resp B/P (MAP) Pulse Ox O2 O2 Flow FiO2 Time Delivery Rate 09/10/18 98.9 13:13 09/10/18 84 16 111/65 96 Nasal 3.0 12:00 (80) Cannula Intake and Output 09/09/18 09/09/18 09/10/18 1515:00 23:00 07:00 IntakeIntake Total 100 ml 1650 ml 1150 ml OutputOutput Total 2000 ml BalanceBalance 100 ml -350 ml 1150 ml Constitutional: non-verbal Psych: confusion Neck: supple Respiratory: crackles/rales Cardiovascular: systolic murmur Gastrointestinal: soft Results Result Diagram: 09/08/18 2310 09/10/18 0433 Results 24hrs Laboratory Tests Test 09/10/18 04:33 09/10/18 04:34 Sodium Level 147 H Potassium Level 4.7 Chloride Level 110 Carbon Dioxide Level 28 Anion Gap 9 Blood Urea Nitrogen 102 H Creatinine 3.14 H Est Glomerular Filtrat Rate mL/min Glucose Level 124 Calcium Level 10.7 H Uric Acid 9.6 H Phosphorus Level 5.9 H Magnesium Level 3.2 H Creatine Kinase 257 H Medications Medication Current Medications Piperacillin Sod/ Tazobactam Sod 50 ml @ 100 mls/hr Q8 IVPB Last administered on 09/10/18 14:37; Admin Dose 100 MLS/HR; Start 09/09/18 at 06:00 Aspirin (Aspirin) 81 mg DAILY GTB Last administered on 09/10/18 09:22; Admin Dose 81 MG; Start 09/09/18 at 09:00 Bisacodyl (Dulcolax) 10 mg DAILY PRN PO CONSTIPATION; Start 09/09/18 at 08:00 Donepezil HCl (Aricept) 5 mg DAILY GTB Last administered on 09/10/18 09:22; Admin Dose 5 MG; Start 09/09/18 at 09:00 Finasteride (Proscar) 5 mg DAILY GTB Last administered on 09/10/18 09:21; Admin Dose 5 MG; Start 09/09/18 at 09:00 Folic Acid (Folic Acid) 1 mg DAILY GTB Last administered on 09/10/18 09:22; Admin Dose 1 MG; Start 09/09/18 at 09:00 Metoprolol Succinate (Toprol Xl) 12.5 mg DAILY PO ; Start 09/09/18 at 09:00; Status Hold Midodrine (Proamatine) 2.5 mg TID@0600,1200,1800 GTB ; Start 09/09/18 at 09:00 Acetaminophen (Tylenol Tab) 650 mg Q6H PRN GTB PAIN Last administered on 09/10/18at 12:28; Admin Dose 650 MG; Start 09/09/18 at 08:14 Lactulose (Enulose) 15 gm TID PRN GTB CONSTIPATION; Start 09/09/18 at 08:16 Magnesium Hydroxide (Milk Of Mag) 30 ml DAILY PRN GTB CONSTIPATION; Start 09/09/18 at 08:16 Metoprolol Tartrate (Lopressor) 25 mg BID GTB Last administered on 09/10/18at 09:32; Admin Dose 25 MG; Start 09/09/18 at 21:00 Sodium Chloride 1,000 ml @ 100 mls/hr Q10H IV Last administered on 09/10/18at 12:02; Admin Dose 100 MLS/HR; Start 09/09/18 at 10:30 Quetiapine Fumarate (Seroquel) 12.5 mg DAILY PRN PO AGITATION; Start 09/09/18 at 10:30 Quetiapine Fumarate (Seroquel) 200 mg HS PO Last administered on 09/09/18at 22:07; Admin Dose 200 MG; Start 09/09/18 at 21:00 Sodium Bicarbonate (Sodium Bicarbonate Tab) 650 mg TID PO Last administered on 09/10/18at 12:28; Admin Dose 650 MG; Start 09/09/18 at 13:00 Tamsulosin HCl (Flomax) 0.4 mg BID PO Last administered on 09/10/18 09:22; Admin Dose 0.4 MG; Start 09/09/18 at 10:30 Menthol/Methyl Salicylate (Baltazar Pineda) 1 applic TID TOP Last administered on 09/10/18 12:28; Admin Dose 1 APPLIC; Start 09/09/18 at 13:00 Vancomycin HCl (Vanco Iv Per Pharmacy) VANCOMYCIN PER PHARMACY PER PROTOCOL XX ; Start 09/10/18 at 11:00 Miscellaneous Information (*Rx Drug Level Order Reminder*) VANCO RANDOM W/ AM LABS... 0500 ONCE XX ; Start 09/11/18 at 05:00; Stop 09/11/18 at 05:01 JANIA SCHWARZ MD Sep 10, 2018 17:54
[2018-09-10] MEDS: QUETIAPINE 100 MG TAB PO SCH (22:04)
[2018-09-11 02:00] VITALS: BP 145/66; PULSE 73; RESP 20
[2018-09-11] MEDS: SOD CHLORIDE 0.9% 1,000 ML IV SCH ×3 (03:52→22:30)
[2018-09-11] MEDS: PIPER-TAZO 2.25 GM (PMX) 50 ML IVPB SCH (05:55)
[2018-09-11] MEDS: MIDODRINE 2.5 MG TAB GTB SCH ×3 (05:59→17:53)
[2018-09-11] MEDS ORDERED: VANCOMYCIN 1 GM 250 ML IVPB SCH (08:00)
[2018-09-11 08:02] VITALS: BP 91/44; PULSE 91; RESP 22
[2018-09-11] MEDS: ACETAMINOPHEN 325 MG TAB GTB PRN ×2 (08:09→22:12)
[2018-09-11] MEDS: ASPIRIN 81 MG TAB GTB SCH (08:09)
[2018-09-11] MEDS: NA BICARBONATE 650 MG TAB PO SCH ×3 (08:09→22:13)
[2018-09-11] MEDS: TAMSULOSIN (SR) 0.4 MG CAP PO SCH ×2 (08:09→22:12)
[2018-09-11] MEDS: DONEPEZIL 5 MG TAB GTB SCH (08:09)
[2018-09-11] MEDS: FOLIC ACID 1 MG TAB GTB SCH (08:09)
[2018-09-11] MEDS: METOPROLOL 25 MG TAB GTB SCH ×2 (08:10→22:12)
[2018-09-11] MEDS: FINASTERIDE 5 MG TAB GTB SCH (08:47)
[2018-09-11] MEDS: BALSAM PERU/CASTOR OIL 60 GM TUBE TOP SCH ×2 (09:00→22:13)
[2018-09-11] MEDS: MENTHOL/METH SALICYLATE 30 GM OINT TOP SCH ×3 (09:00→22:13)
[2018-09-11 09:20] VITALS: BP 124/61; PULSE 74; RESP 16
--- NOTE | 2018-09-11 10:08 | PN ---
Date/Time of Note Date/Time of Note DATE: 09/11/18 TIME: 10:06 Subjective Remains quite lethargic and poorly responsive. Son at the bedside Objective Vitals Vital Signs Date Temp Pulse Resp B/P (MAP) Pulse Ox O2 O2 Flow FiO2 Time Delivery Rate 09/11/18 98.6 09:15 09/11/18 91 22 91/44 (60) 97 08:02 09/11/18 2.0 03:59 09/10/18 Nasal 21:00 Cannula Intake and Output 09/10/18 09/10/18 09/11/18 1515:00 23:00 07:00 IntakeIntake Total 400 ml 650 ml 650 ml OutputOutput Total 800 ml 1000 ml 1150 ml BalanceBalance -400 ml -350 ml -500 ml Bilateral rhonchi Regular rate and rhythm Soft nontender nondistended normoactive bowel sounds No edema Results Result Diagram: 09/08/18 2310 09/11/18 0528 Medications Medications Current Medications Aspirin (Aspirin) 81 mg DAILY GTB Last administered on 09/11/18at 08:09; Admin Dose 81 MG; Start 09/09/18 at 09:00 Bisacodyl (Dulcolax) 10 mg DAILY PRN PO CONSTIPATION; Start 09/09/18 at 08:00 Donepezil HCl (Aricept) 5 mg DAILY GTB Last administered on 09/11/18at 08:09; Admin Dose 5 MG; Start 09/09/18 at 09:00 Finasteride (Proscar) 5 mg DAILY GTB Last administered on 09/11/18at 08:47; Admin Dose 5 MG; Start 09/09/18 at 09:00 Folic Acid (Folic Acid) 1 mg DAILY GTB Last administered on 09/11/18at 08:09; Admin Dose 1 MG; Start 09/09/18 at 09:00 Metoprolol Succinate (Toprol Xl) 12.5 mg DAILY PO ; Start 09/09/18 at 09:00; Status Hold Midodrine (Proamatine) 2.5 mg TID@0600,1200,1800 GTB Last administered on 09/11/18at 08:09; Admin Dose 2.5 MG; Start 09/09/18 at 09:00 Acetaminophen (Tylenol Tab) 650 mg Q6H PRN GTB PAIN Last administered on 09/11/18 08:09; Admin Dose 650 MG; Start 09/09/18 at 08:14 Lactulose (Enulose) 15 gm TID PRN GTB CONSTIPATION; Start 09/09/18 at 08:16 Magnesium Hydroxide (Milk Of Mag) 30 ml DAILY PRN GTB CONSTIPATION; Start 09/09/18 at 08:16 Metoprolol Tartrate (Lopressor) 25 mg BID GTB Last administered on 09/10/18 22:06; Admin Dose 25 MG; Start 09/09/18 at 21:00 Sodium Chloride 1,000 ml @ 100 mls/hr Q10H IV Last administered on 09/11/18 03:52; Admin Dose 100 MLS/HR; Start 09/09/18 at 10:30 Quetiapine Fumarate (Seroquel) 12.5 mg DAILY PRN PO AGITATION; Start 09/09/18 at 10:30 Quetiapine Fumarate (Seroquel) 200 mg HS PO Last administered on 09/10/18at 22:04; Admin Dose 200 MG; Start 09/09/18 at 21:00 Sodium Bicarbonate (Sodium Bicarbonate Tab) 650 mg TID PO Last administered on 09/11/18 08:09; Admin Dose 650 MG; Start 09/09/18 at 13:00 Tamsulosin HCl (Flomax) 0.4 mg BID PO Last administered on 09/11/18 08:09; Admin Dose 0.4 MG; Start 09/09/18 at 10:30 Menthol/Methyl Salicylate (Baltazar Pineda) 1 applic TID TOP Last administered on 09/10/18 22:07; Admin Dose 1 APPLIC; Start 09/09/18 at 13:00 Vancomycin HCl (Vanco Iv Per Pharmacy) VANCOMYCIN PER PHARMACY PER PROTOCOL XX ; Start 09/10/18 at 11:00 Vancomycin HCl 250 ml @ 125 mls/hr ONCE IVPB Last administered on 09/11/18 08:08; Admin Dose 125 MLS/HR; Start 09/11/18 at 08:00; Stop 09/11/18 at 23:59 Levofloxacin/ Dextrose 50 ml @ 50 mls/hr Q48H IVPB ; Start 09/11/18 at 11:00 VTE Prophylaxis Risk score (from Ns)>0 risk: 3 SCD applied (from Ns): Yes Lines/Catheters IV Catheter Type: Saline Lock Rain in Place: Yes Cont'd rain catheter reason: terminal illness/intractable pain Assessment/Plan Assessment/Plan Polymicrobial urosepsis Altered mental status Dehydration Acute on chronic kidney injury Renal cell carcinoma Chronic debilitation BPH Change Zosyn to Levaquin Continue vancomycin Monitor renal function Renal follow-up Await palliative care evaluation Plan of care was discussed with the PEPE Villegas MD Sep 11, 2018 10:08
[2018-09-11] MEDS ORDERED: LEVOFLOXACIN 250MG/D5W (PMX) 50 ML IVPB SCH (11:00)
[2018-09-11 14:29] VITALS: BP 118/56; PULSE 70; RESP 20
[2018-09-11 18:51] LABS: PTH CALCIUM 9.7 mg/dL (8.6-10.3)
[2018-09-11 19:43] VITALS: BP 110/58; PULSE 98; RESP 18
[2018-09-11] MEDS: QUETIAPINE 100 MG TAB PO SCH (22:12)
[2018-09-12 02:00] VITALS: BP 118/52; PULSE 83; RESP 20
[2018-09-12] MEDS: SOD CHLORIDE 0.9% 1,000 ML IV SCH ×2 (04:12→15:54)
[2018-09-12] MEDS: MIDODRINE 2.5 MG TAB GTB SCH ×3 (05:50→17:39)
[2018-09-12 08:00] VITALS: BP 128/58; PULSE 71; RESP 21
[2018-09-12] MEDS: TAMSULOSIN (SR) 0.4 MG CAP PO SCH ×2 (08:32→21:02)
[2018-09-12] MEDS: NA BICARBONATE 650 MG TAB PO SCH ×3 (08:32→21:02)
[2018-09-12] MEDS: BALSAM PERU/CASTOR OIL 60 GM TUBE TOP SCH ×2 (08:33→21:03)
[2018-09-12] MEDS: FOLIC ACID 1 MG TAB GTB SCH (08:33)
[2018-09-12] MEDS: FINASTERIDE 5 MG TAB GTB SCH (08:33)
[2018-09-12] MEDS: METOPROLOL 25 MG TAB GTB SCH ×2 (08:33→21:02)
[2018-09-12] MEDS: DONEPEZIL 5 MG TAB GTB SCH (08:33)
[2018-09-12] MEDS: ASPIRIN 81 MG TAB GTB SCH (08:33)
[2018-09-12] MEDS: MENTHOL/METH SALICYLATE 30 GM OINT TOP SCH ×3 (08:34→21:03)
--- NOTE | 2018-09-12 09:15 | CONS ---
Assessment/Plan Assessment/Plan Assessment/Plan (Daily) Chart reviewed and spoke to son... meeting with family 09/12 929 full PC note to follow Consultation Date/Type/Reason Admit Date/Time Sep 09, 2018 at 00:34 Date/Time of Note DATE: 09/12/18 TIME: 09:13 Past Medical History Medical History: cancer, coronary artery disease, hypertension Home Meds Reported Medications Tramadol Hcl* (Ultram*) 50 Mg Tablet, 50 MG PO Q6H PRN for PAIN, TAB 09/09/18 Tamsulosin Hcl* (Flomax*) 0.4 Mg Cap.er.24h, 0.4 MG PO BID, CAP 09/09/18 Vitamin B Complex (B Complex # 1) 1 Each Tablet, 1 EACH PO DAILY, TAB 09/09/18 Sodium Bicarbonate (Na Bicarbonate) 650 Mg Tab, 650 MG PO TID, TAB 09/09/18 Quetiapine Fumarate* (Seroquel*) 200 Mg Tablet, 200 MG PO HS, #30 TAB 09/09/18 Quetiapine Fumarate* (Seroquel*) 25 Mg Tablet, 12.5 MG PO DAILY PRN for AGITATION, #60 TAB 09/09/18 Protein Supplement (Promod) 946 Ml Liquid, 30 ML PO TID 09/09/18 Omeprazole* (Omeprazole*) 40 Mg Capsule.dr, 40 MG PO DAILY, #30 CAP 09/09/18 Multivitamins (MVI ADULT) 10 Ml Soln, 30 ML G-TUBE DAILY 09/09/18 Multivitamins* (Theragran*) 1 Tab Tab, 1 TAB PO DAILY, TAB 09/09/18 Metoprolol Succinate* (Toprol XL*) 25 Mg Tab.sr.24h, 12.5 MG PO DAILY, #30 TAB 09/09/18 Melatonin (MELADOX) 3 Mg Tablet.er, 3 MG G-TUBE PRN for INSOMNIA, TAB 09/09/18 Magnesium Oxide* (Magnesium Oxide*) 400 Mg Tablet, 400 MG PO BID, TAB 09/09/18 Furosemide* (Furosemide*) 20 Mg Tablet, 20 MG PO DAILY, #60 TAB 09/09/18 Lactulose* (Lactulose*) 20 Gm/30 Ml Solution, 15 GM PO TID PRN for CONSTIPATION, ML 09/09/18 Folic Acid* (Folic Acid*) 1 Mg Tablet, 1 MG PO DAILY, TAB 09/09/18 Finasteride* (Finasteride*) 5 Mg Tablet, 5 MG PO DAILY, TAB 09/09/18 Bisacodyl* (Dulcolax*) 5 Mg Tablet.dr, 10 MG RECTAL DAILY PRN for CONSTIPATION, TAB 09/09/18 Magnesium Hydroxide* (Milk Of Magnesia*) 400 Mg/5 Ml Oral.susp, 30 ML PO DAILY PRN for CONSTIPATION, ML 09/09/18 Atorvastatin* (Atorvastatin*) 40 Mg Tablet, 20 MG PO QHS, #30 TAB 09/09/18 Aspirin* (Aspirin*) 325 Mg Tablet, 81 MG PO DAILY, TAB 09/09/18 Acetaminophen* (Acetaminophen*) 650 Mg Tablet, 650 MG PO Q6H PRN for PAIN, #30 TAB 09/09/18 Discontinued Reported Medications Midodrine HCl (Midodrine HCl) 2.5 Mg Tablet, 2.5 MG PO TID, TAB 09/09/18 Nitrofurantoin Monohyd Macrocr* (Macrobid*) 100 Mg Capsr, 100 MG PO BID, CAP 09/09/18 Donepezil* (Donepezil*) 5 Mg Tablet, 5 MG PO DAILY, #30 TAB 09/09/18 Medications Current Medications Aspirin (Aspirin) 81 mg DAILY GTB Last administered on 09/12/18at 08:33; Admin Dose 81 MG; Start 09/09/18 at 09:00 Bisacodyl (Dulcolax) 10 mg DAILY PRN PO CONSTIPATION; Start 09/09/18 at 08:00 Donepezil HCl (Aricept) 5 mg DAILY GTB Last administered on 09/12/18at 08:33; Admin Dose 5 MG; Start 09/09/18 at 09:00 Finasteride (Proscar) 5 mg DAILY GTB Last administered on 09/12/18at 08:33; Admin Dose 5 MG; Start 09/09/18 at 09:00 Folic Acid (Folic Acid) 1 mg DAILY GTB Last administered on 09/12/18at 08:33; Admin Dose 1 MG; Start 09/09/18 at 09:00 Metoprolol Succinate (Toprol Xl) 12.5 mg DAILY PO ; Start 09/09/18 at 09:00; Status Hold Midodrine (Proamatine) 2.5 mg TID@0600,1200,1800 GTB Last administered on 09/11/18 08:09; Admin Dose 2.5 MG; Start 09/09/18 at 09:00 Acetaminophen (Tylenol Tab) 650 mg Q6H PRN GTB PAIN Last administered on 09/11/18 22:12; Admin Dose 650 MG; Start 09/09/18 at 08:14 Lactulose (Enulose) 15 gm TID PRN GTB CONSTIPATION; Start 09/09/18 at 08:16 Magnesium Hydroxide (Milk Of Mag) 30 ml DAILY PRN GTB CONSTIPATION; Start 09/09/18 at 08:16 Metoprolol Tartrate (Lopressor) 25 mg BID GTB Last administered on 09/12/18 08:33; Admin Dose 25 MG; Start 09/09/18 at 21:00 Sodium Chloride 1,000 ml @ 100 mls/hr Q10H IV Last administered on 09/12/18 04:12; Admin Dose 100 MLS/HR; Start 09/09/18 at 10:30 Quetiapine Fumarate (Seroquel) 12.5 mg DAILY PRN PO AGITATION; Start 09/09/18 at 10:30 Quetiapine Fumarate (Seroquel) 200 mg HS PO Last administered on 09/11/18 22:12; Admin Dose 200 MG; Start 09/09/18 at 21:00 Sodium Bicarbonate (Sodium Bicarbonate Tab) 650 mg TID PO Last administered on 09/12/18 08:32; Admin Dose 650 MG; Start 09/09/18 at 13:00 Tamsulosin HCl (Flomax) 0.4 mg BID PO Last administered on 09/12/18 08:32; Admin Dose 0.4 MG; Start 09/09/18 at 10:30 Menthol/Methyl Salicylate (Baltazar Pineda) 1 applic TID TOP Last administered on 09/12/18 08:34; Admin Dose 1 APPLIC; Start 09/09/18 at 13:00 Vancomycin HCl (Vanco Iv Per Pharmacy) VANCOMYCIN PER PHARMACY PER PROTOCOL XX ; Start 09/10/18 at 11:00 Levofloxacin/ Dextrose 50 ml @ 50 mls/hr Q48H IVPB Last administered on 09/11/18 12:21; Admin Dose 50 MLS/HR; Start 09/11/18 at 11:00 Allergies: Coded Allergies: No Known Allergy (Unverified , 09/08/18) Past Surgical History Past Surgical Hx: other Social History Alcohol Use: none Smoking Status: Never smoker Drug Use: none Exam/Review of Systems Exam Vitals Vital Signs Date Temp Pulse Resp B/P (MAP) Pulse Ox O2 O2 Flow FiO2 Time Delivery Rate 09/12/18 98.1 71 21 128/58 97 Nasal 08:00 (81) Cannula 09/12/18 2.0 04:49 Intake and Output 09/11/18 09/11/18 09/12/18 1515:00 23:00 07:00 IntakeIntake Total 1100 ml 1000 ml OutputOutput Total 900 ml 1000 ml BalanceBalance 1100 ml -900 ml 0 ml Results Result Diagram: 09/08/18 2310 09/12/18 0448 Results 24hrs Laboratory Tests Test 09/12/18 04:48 Sodium Level 151 H Potassium Level 3.7 Chloride Level 115 H Carbon Dioxide Level 27 Anion Gap 9 Blood Urea Nitrogen 83 H Creatinine 2.18 H Est Glomerular Filtrat Rate mL/min Glucose Level 126 Calcium Level 10.1 Medications Medication Current Medications Aspirin (Aspirin) 81 mg DAILY GTB Last administered on 09/12/18at 08:33; Admin Dose 81 MG; Start 09/09/18 at 09:00 Bisacodyl (Dulcolax) 10 mg DAILY PRN PO CONSTIPATION; Start 09/09/18 at 08:00 Donepezil HCl (Aricept) 5 mg DAILY GTB Last administered on 09/12/18at 08:33; Admin Dose 5 MG; Start 09/09/18 at 09:00 Finasteride (Proscar) 5 mg DAILY GTB Last administered on 09/12/18at 08:33; Admin Dose 5 MG; Start 09/09/18 at 09:00 Folic Acid (Folic Acid) 1 mg DAILY GTB Last administered on 09/12/18at 08:33; Admin Dose 1 MG; Start 09/09/18 at 09:00 Metoprolol Succinate (Toprol Xl) 12.5 mg DAILY PO ; Start 09/09/18 at 09:00; Status Hold Midodrine (Proamatine) 2.5 mg TID@0600,1200,1800 GTB Last administered on 09/11/18at 08:09; Admin Dose 2.5 MG; Start 09/09/18 at 09:00 Acetaminophen (Tylenol Tab) 650 mg Q6H PRN GTB PAIN Last administered on 09/11/18 22:12; Admin Dose 650 MG; Start 09/09/18 at 08:14 Lactulose (Enulose) 15 gm TID PRN GTB CONSTIPATION; Start 09/09/18 at 08:16 Magnesium Hydroxide (Milk Of Mag) 30 ml DAILY PRN GTB CONSTIPATION; Start 09/09/18 at 08:16 Metoprolol Tartrate (Lopressor) 25 mg BID GTB Last administered on 09/12/18 08:33; Admin Dose 25 MG; Start 09/09/18 at 21:00 Sodium Chloride 1,000 ml @ 100 mls/hr Q10H IV Last administered on 09/12/18 04:12; Admin Dose 100 MLS/HR; Start 09/09/18 at 10:30 Quetiapine Fumarate (Seroquel) 12.5 mg DAILY PRN PO AGITATION; Start 09/09/18 at 10:30 Quetiapine Fumarate (Seroquel) 200 mg HS PO Last administered on 09/11/18 22:1 2; Admin Dose 200 MG; Start 09/09/18 at 21:00 Sodium Bicarbonate (Sodium Bicarbonate Tab) 650 mg TID PO Last administered on 09/12/18 08:32; Admin Dose 650 MG; Start 09/09/18 at 13:00 Tamsulosin HCl (Flomax) 0.4 mg BID PO Last administered on 09/12/18 08:32; Admin Dose 0.4 MG; Start 09/09/18 at 10:30 Menthol/Methyl Salicylate (Baltazar Pineda) 1 applic TID TOP Last administered on 09/12/18 08:34; Admin Dose 1 APPLIC; Start 09/09/18 at 13:00 Vancomycin HCl (Vanco Iv Per Pharmacy) VANCOMYCIN PER PHARMACY PER PROTOCOL XX ; Start 09/10/18 at 11:00 Levofloxacin/ Dextrose 50 ml @ 50 mls/hr Q48H IVPB Last administered on 09/11/18 12:21; Admin Dose 50 MLS/HR; Start 09/11/18 at 11:00 JANNA QUINONEZ Sep 12, 2018 09:15
--- NOTE | 2018-09-12 10:52 | PN ---
Date/Time of Note Date/Time of Note DATE: 09/12/18 TIME: 10:49 Subjective Remains lethargic and poorly responsive Objective Vitals Vital Signs Date Temp Pulse Resp B/P (MAP) Pulse Ox O2 O2 Flow FiO2 Time Delivery Rate 09/12/18 Nasal 4.0 09:15 Cannula 09/12/18 98.1 71 21 128/58 97 08:00 (81) Intake and Output 09/11/18 09/11/18 09/12/18 1515:00 23:00 07:00 IntakeIntake Total 1100 ml 1000 ml OutputOutput Total 900 ml 1000 ml BalanceBalance 1100 ml -900 ml 0 ml Lungs clear to auscultation Regular rate and rhythm Soft nontender nondistended normoactive bowel sounds No edema Results Result Diagram: 09/08/18 5510 09/12/18 0448 Medications Medications Current Medications Aspirin (Aspirin) 81 mg DAILY GTB Last administered on 09/12/18at 08:33; Admin Dose 81 MG; Start 09/09/18 at 09:00 Bisacodyl (Dulcolax) 10 mg DAILY PRN PO CONSTIPATION; Start 09/09/18 at 08:00 Donepezil HCl (Aricept) 5 mg DAILY GTB Last administered on 09/12/18 08:33; Admin Dose 5 MG; Start 09/09/18 at 09:00 Finasteride (Proscar) 5 mg DAILY GTB Last administered on 09/12/18 08:33; Admin Dose 5 MG; Start 09/09/18 at 09:00 Folic Acid (Folic Acid) 1 mg DAILY GTB Last administered on 09/12/18at 08:33; Admin Dose 1 MG; Start 09/09/18 at 09:00 Metoprolol Succinate (Toprol Xl) 12.5 mg DAILY PO ; Start 09/09/18 at 09:00; Status Hold Midodrine (Proamatine) 2.5 mg TID@0600,1200,1800 GTB Last administered on 09/11/18at 08:09; Admin Dose 2.5 MG; Start 09/09/18 at 09:00 Acetaminophen (Tylenol Tab) 650 mg Q6H PRN GTB PAIN Last administered on 09/11/18at 22:12; Admin Dose 650 MG; Start 09/09/18 at 08:14 Lactulose (Enulose) 15 gm TID PRN GTB CONSTIPATION; Start 09/09/18 at 08:16 Magnesium Hydroxide (Milk Of Mag) 30 ml DAILY PRN GTB CONSTIPATION; Start 09/09/18 at 08:16 Metoprolol Tartrate (Lopressor) 25 mg BID GTB Last administered on 09/12/18 08:33; Admin Dose 25 MG; Start 09/09/18 at 21:00 Sodium Chloride 1,000 ml @ 100 mls/hr Q10H IV Last administered on 09/12/18at 04:12; Admin Dose 100 MLS/HR; Start 09/09/18 at 10:30 Quetiapine Fumarate (Seroquel) 12.5 mg DAILY PRN PO AGITATION; Start 09/09/18 at 10:30 Quetiapine Fumarate (Seroquel) 200 mg HS PO Last administered on 09/11/18at 22:12; Admin Dose 200 MG; Start 09/09/18 at 21:00 Sodium Bicarbonate (Sodium Bicarbonate Tab) 650 mg TID PO Last administered on 09/12/18 08:32; Admin Dose 650 MG; Start 09/09/18 at 13:00 Tamsulosin HCl (Flomax) 0.4 mg BID PO Last administered on 09/12/18 08:32; Admin Dose 0.4 MG; Start 09/09/18 at 10:30 Menthol/Methyl Salicylate (Baltazar Pineda) 1 applic TID TOP Last administered on 09/12/18 08:34; Admin Dose 1 APPLIC; Start 09/09/18 at 13:00 Vancomycin HCl (Vanco Iv Per Pharmacy) VANCOMYCIN PER PHARMACY PER PROTOCOL XX ; Start 09/10/18 at 11:00 Levofloxacin/ Dextrose 50 ml @ 50 mls/hr Q48H IVPB Last administered on 09/11/18 12:21; Admin Dose 50 MLS/HR; Start 09/11/18 at 11:00 VTE Prophylaxis Risk score (from Nsg)>0 risk: 9 SCD applied (from Nsg): Yes Lines/Catheters IV Catheter Type: Saline Lock Central line still needed: No Rain in Place: Yes Cont'd rain catheter reason: terminal illness/intractable pain Assessment/Plan Assessment/Plan Polymicrobial urosepsis. Urine culture is growing E. coli and Pseudomonas. Bl ood cultures growing coag negative staph Acute on chronic kidney injury, improved with hydration Dysphagia on G-tube feeding Renal cell carcinoma Chronic debilitation DNR CODE STATUS I had a family meeting with his son and 2 daughters as well as Dr. Bruno. His overall condition and prognosis was discussed in length. Hospice was highly recommended. Family does not wish for him to go to SNF and wants to take him home in care of hospice. Continue Zosyn Change vancomycin to doxycycline Discharge planning in 1-2 days in care of hospice PEPE POLANCO MD Sep 12, 2018 10:52
--- NOTE | 2018-09-12 10:56 | CONS ---
Assessment/Plan Assessment/Plan Assessment/Plan (Daily) Discussion with family members First of all family members have decided on hospice care at home. And secondly they are very happy with the quality of care that patient is received at [facility] in the level of communication with Dr. Nicholas After patient's medical condition and prognosis was discussed in detail hospice benefits were discussed with family members.. They have a clear understanding of his underlying medical illness and his overall prognosis. They do understand that he is suffering and just want to keep him comfortable and at home in the future. They are decision makers for patient's ongoing level of care although there is one brother could not make the meeting today. There is no dissension between family members and so far is ongoing level of care in ultimate discharge to hospice care. Hopes that he does not suffer approaching end-of-life and acceptable quality of life that he does at home comfortably with his family members. They have a strong family unit with strengths in spirituality and kareem. There are no communication issues as I mentioned above. They have no other caregiver concerns with the exception at the unhappy with the level of c are that he was receiving at a care home unit. My impression is that family will be very satisfied with the level of care they were received from hospice services in the future and I emphasized to them that they could speak to the primary care physician and obtain names of different hospice as they could choose from when patient arrives home. She is estimated prognosis is less than 3 months. Pain and suffering issues were addressed and reassured them that hospice will teach him how to medicate the patient home for pain and shortness of breath but if patient experiences the symptoms that are not addressed by hospice they have the right to choose a different hospice but I recommend to them that they go through [place] discuss her issues with any particular hospice services that are not meeting fair needs. No other cultural issues psychosocial issues ethical issues that need to be addressed. I suggest a POLST form to be given to family members before patient is discharged from the hospital. Consultation Date/Type/Reason Admit Date/Time Sep 09, 2018 at 00:34 Date/Time of Note DATE: 09/12/18 TIME: 10:48 Past Medical History Medical History: cancer, coronary artery disease, hypertension Home Meds Reported Medications Tramadol Hcl* (Ultram*) 50 Mg Tablet, 50 MG PO Q6H PRN for PAIN, TAB 09/09/18 Tamsulosin Hcl* (Flomax*) 0.4 Mg Cap.er.24h, 0.4 MG PO BID, CAP 09/09/18 Vitamin B Complex (B Complex # 1) 1 Each Tablet, 1 EACH PO DAILY, TAB 09/09/18 Sodium Bicarbonate (Na Bicarbonate) 650 Mg Tab, 650 MG PO TID, TAB 09/09/18 Quetiapine Fumarate* (Seroquel*) 200 Mg Tablet, 200 MG PO HS, #30 TAB 09/09/18 Quetiapine Fumarate* (Seroquel*) 25 Mg Tablet, 12.5 MG PO DAILY PRN for AGITATION, #60 TAB 09/09/18 Protein Supplement (Promod) 946 Ml Liquid, 30 ML PO TID 09/09/18 Omeprazole* (Omeprazole*) 40 Mg Capsule.dr, 40 MG PO DAILY, #30 CAP 09/09/18 Multivitamins (MVI ADULT) 10 Ml Soln, 30 ML G-TUBE DAILY 09/09/18 Multivitamins* (Theragran*) 1 Tab Tab, 1 TAB PO DAILY, TAB 09/09/18 Metoprolol Succinate* (Toprol XL*) 25 Mg Tab.sr.24h, 12.5 MG PO DAILY, #30 TAB 09/09/18 Melatonin (MELADOX) 3 Mg Tablet.er, 3 MG G-TUBE PRN for INSOMNIA, TAB 09/09/18 Magnesium Oxide* (Magnesium Oxide*) 400 Mg Tablet, 400 MG PO BID, TAB 09/09/18 Furosemide* (Furosemide*) 20 Mg Tablet, 20 MG PO DAILY, #60 TAB 09/09/18 Lactulose* (Lactulose*) 20 Gm/30 Ml Solution, 15 GM PO TID PRN for CONSTIPATION, ML 09/09/18 Folic Acid* (Folic Acid*) 1 Mg Tablet, 1 MG PO DAILY, TAB 09/09/18 Finasteride* (Finasteride*) 5 Mg Tablet, 5 MG PO DAILY, TAB 09/09/18 Bisacodyl* (Dulcolax*) 5 Mg Tablet.dr, 10 MG RECTAL DAILY PRN for CONSTIPATION, TAB 09/09/18 Magnesium Hydroxide* (Milk Of Magnesia*) 400 Mg/5 Ml Oral.susp, 30 ML PO DAILY PRN for CONSTIPATION, ML 09/09/18 Atorvastatin* (Atorvastatin*) 40 Mg Tablet, 20 MG PO QHS, #30 TAB 09/09/18 Aspirin* (Aspirin*) 325 Mg Tablet, 81 MG PO DAILY, TAB 09/09/18 Acetaminophen* (Acetaminophen*) 650 Mg Tablet, 650 MG PO Q6H PRN for PAIN, #30 TAB 09/09/18 Discontinued Reported Medications Midodrine HCl (Midodrine HCl) 2.5 Mg Tablet, 2.5 MG PO TID, TAB 09/09/18 Nitrofurantoin Monohyd Macrocr* (Macrobid*) 100 Mg Capsr, 100 MG PO BID, CAP 09/09/18 Donepezil* (Donepezil*) 5 Mg Tablet, 5 MG PO DAILY, #30 TAB 09/09/18 Medications Current Medications Aspirin (Aspirin) 81 mg DAILY GTB Last administered on 09/12/18at 08:33; Admin Dose 81 MG; Start 09/09/18 at 09:00 Bisacodyl (Dulcolax) 10 mg DAILY PRN PO CONSTIPATION; Start 09/09/18 at 08:00 Donepezil HCl (Aricept) 5 mg DAILY GTB Last administered on 09/12/18 08:33; Admin Dose 5 MG; Start 09/09/18 at 09:00 Finasteride (Proscar) 5 mg DAILY GTB Last administered on 09/12/18at 08:33; Admin Dose 5 MG; Start 09/09/18 at 09:00 Folic Acid (Folic Acid) 1 mg DAILY GTB Last administered on 09/12/18at 08:33; Admin Dose 1 MG; Start 09/09/18 at 09:00 Metoprolol Succinate (Toprol Xl) 12.5 mg DAILY PO ; Start 09/09/18 at 09:00; Status Hold Midodrine (Proamatine) 2.5 mg TID@0600,1200,1800 GTB Last administered on 09/11/18at 08:09; Admin Dose 2.5 MG; Start 09/09/18 at 09:00 Acetaminophen (Tylenol Tab) 650 mg Q6H PRN GTB PAIN Last administered on 09/11/18at 22:12; Admin Dose 650 MG; Start 09/09/18 at 08:14 Lactulose (Enulose) 15 gm TID PRN GTB CONSTIPATION; Start 09/09/18 at 08:16 Magnesium Hydroxide (Milk Of Mag) 30 ml DAILY PRN GTB CONSTIPATION; Start 09/09/18 at 08:16 Metoprolol Tartrate (Lopressor) 25 mg BID GTB Last administered on 09/12/18 08:33; Admin Dose 25 MG; Start 09/09/18 at 21:00 Sodium Chloride 1,000 ml @ 100 mls/hr Q10H IV Last administered on 09/12/18 04:12; Admin Dose 100 MLS/HR; Start 09/09/18 at 10:30 Quetiapine Fumarate (Seroquel) 12.5 mg DAILY PRN PO AGITATION; Start 09/09/18 at 10:30 Quetiapine Fumarate (Seroquel) 200 mg HS PO Last administered on 09/11/18at 22:12; Admin Dose 200 MG; Start 09/09/18 at 21:00 Sodium Bicarbonate (Sodium Bicarbonate Tab) 650 mg TID PO Last administered on 09/12/18 08:32; Admin Dose 650 MG; Start 09/09/18 at 13:00 Tamsulosin HCl (Flomax) 0.4 mg BID PO Last administered on 09/12/18 08:32; Admin Dose 0.4 MG; Start 09/09/18 at 10:30 Menthol/Methyl Salicylate (Baltazar Pineda) 1 applic TID TOP Last administered on 09/12/18 08:34; Admin Dose 1 APPLIC; Start 09/09/18 at 13:00 Vancomycin HCl (Vanco Iv Per Pharmacy) VANCOMYCIN PER PHARMACY PER PROTOCOL XX ; Start 09/10/18 at 11:00 Levofloxacin/ Dextrose 50 ml @ 50 mls/hr Q48H IVPB Last administered on 09/11/18at 12:21; Admin Dose 50 MLS/HR; Start 09/11/18 at 11:00 Allergies: Coded Allergies: No Known Allergy (Unverified , 09/08/18) Past Surgical History Past Surgical Hx: other Social History Alcohol Use: none Smoking Status: Never smoker Drug Use: none Exam/Review of Systems Exam Vitals Vital Signs Date Temp Pulse Resp B/P (MAP) Pulse Ox O2 O2 Flow FiO2 Time Delivery Rate 09/12/18 Nasal 4.0 09:15 Cannula 09/12/18 98.1 71 21 128/58 97 08:00 (81) Intake and Output 09/11/18 09/11/18 09/12/18 1515:00 23:00 07:00 IntakeIntake Total 1100 ml 1000 ml OutputOutput Total 900 ml 1000 ml BalanceBalance 1100 ml -900 ml 0 ml Constitutional: distress, frail Psych: confusion Head: normocephalic, atraumatic; No lacerations, No hematomas, No other Eyes: nl conjunctiva, EOMI, nl lids, nl sclera, PERRL; No icteric, No fundi, disc, No other ENMT: nl external ears & nose, nl lips & teeth, nl nasal mucosa & septum; No mucosa pink and moist, No intubated, No tympanic membranes, No other Respiratory: congested cough, crackles/rales Cardiovascular: regular rate and rhythm, nl pulses; No bruits, No diastolic murmur, No edema, No gallop, No irregular rhythm, No jugular venous distention (JVD), No murmurs/extra sounds, No rub, No systolic murmur, No S3, No S4, No other Gastrointestinal: bowel sounds Neurological: confused, lethargic, other (Minimally responsive to tactile stimulation only) Skin: nl turgor; No rash or lesions, No diaphoresis, No ecchymosis, No laceration, No pu ncture, No other Results Result Diagram: 09/08/18 2310 09/12/18 0448 Results 24hrs Laboratory Tests Test 09/12/18 04:48 Sodium Level 151 H Potassium Level 3.7 Chloride Level 115 H Carbon Dioxide Level 27 Anion Gap 9 Blood Urea Nitrogen 83 H Creatinine 2.18 H Est Glomerular Filtrat Rate mL/min Glucose Level 126 Calcium Level 10.1 Medications Medication Current Medications Aspirin (Aspirin) 81 mg DAILY GTB Last administered on 09/12/18at 08:33; Admin Dose 81 MG; Start 09/09/18 at 09:00 Bisacodyl (Dulcolax) 10 mg DAILY PRN PO CONSTIPATION; Start 09/09/18 at 08:00 Donepezil HCl (Aricept) 5 mg DAILY GTB Last administered on 09/12/18at 08:33; Admin Dose 5 MG; Start 09/09/18 at 09:00 Finasteride (Proscar) 5 mg DAILY GTB Last administered on 09/12/18at 08:33; Admin Dose 5 MG; Start 09/09/18 at 09:00 Folic Acid (Folic Acid) 1 mg DAILY GTB Last administered on 09/12/18 08:33; Admin Dose 1 MG; Start 09/09/18 at 09:00 Metoprolol Succinate (Toprol Xl) 12.5 mg DAILY PO ; Start 09/09/18 at 09:00; Status Hold Midodrine (Proamatine) 2.5 mg TID@0600,1200,1800 GTB Last administered on 09/11/18 08:09; Admin Dose 2.5 MG; Start 09/09/18 at 09:00 Acetaminophen (Tylenol Tab) 650 mg Q6H PRN GTB PAIN Last administered on 09/11/18 22:12; Admin Dose 650 MG; Start 09/09/18 at 08:14 Lactulose (Enulose) 15 gm TID PRN GTB CONSTIPATION; Start 09/09/18 at 08:16 Magnesium Hydroxide (Milk Of Mag) 30 ml DAILY PRN GTB CONSTIPATION; Start 09/09/18 at 08:16 Metoprolol Tartrate (Lopressor) 25 mg BID GTB Last administered on 09/12/18 08:33; Admin Dose 25 MG; Start 09/09/18 at 21:00 Sodium Chloride 1,000 ml @ 100 mls/hr Q10H IV Last administered on 09/12/18 04:12; Admin Dose 100 MLS/HR; Start 09/09/18 at 10:30 Quetiapine Fumarate (Seroquel) 12.5 mg DAILY PRN PO AGITATION; Start 09/09/18 at 10:30 Quetiapine Fumarate (Seroquel) 200 mg HS PO Last administered on 09/11/18 22:12; Admin Dose 200 MG; Start 09/09/18 at 21:00 Sodium Bicarbonate (Sodium Bicarbonate Tab) 650 mg TID PO Last administered on 09/12/18 08:32; Admin Dose 650 MG; Start 09/09/18 at 13:00 Tamsulosin HCl (Flomax) 0.4 mg BID PO Last administered on 09/12/18 08:32; Admin Dose 0.4 MG; Start 09/09/18 at 10:30 Menthol/Methyl Salicylate (Baltazar Pineda) 1 applic TID TOP Last administered on 4/2/19at 08:34; Admin Dose 1 APPLIC; Start 09/09/18 at 13:00 Vancomycin HCl (Vanco Iv Per Pharmacy) VANCOMYCIN PER PHARMACY PER PROTOCOL XX ; Start 09/10/18 at 11:00 Levofloxacin/ Dextrose 50 ml @ 50 mls/hr Q48H IVPB Last administered on 09/11/18at 12:21; Admin Dose 50 MLS/HR; Start 09/11/18 at 11:00 JANNA QUINONEZ Sep 12, 2018 10:56
[2018-09-12] MEDS: DOXYCYCLINE 100 MG in SOD CHLORIDE 0.9% 250 ML IVPB SCH ×2 (11:29→21:58)
--- NOTE | 2018-09-12 12:03 | CONS ---
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 If Jason Cath. was blocked vs Chronic [place] - Hypercalcemia ? secondary to Underlying cancer / Dehydration - For now continue with Jason catheter - Monitor UO closely - Check URIC ACID - Check PTH - Check PHOS - Check total CK - Check FENa - Check Eosinophilia - IVF NS 0.9% continuer - Recheck Labs later today to monitor potassium - Needs work up for Neoplasm - Stable JAY - Renal slightly improved - High URIC ACID ( ? if can take PO Meds ) Has been confused - Follow up with PTH - Follow up with PHOS ( start Renvela powder via PEG TID ) - Free water via PEG Q 6-8 hrs - Renvela powder TID - Allopurinol via PEG daily - Stable CKD / JAY Consultation Date/Type/Reason Admit Date/Time Sep 09, 2018 at 00:34 Initial Consult Date 09/09/18 Type of Consult - NEPHROLOGY Date/Time of Note DATE: 09/12/18 TIME: 12:01 24 HR Interval Summary Subjective hx not possible: pt non-verbal Constitutional: no complaints Exam/Review of Systems Exam Vitals Vital Signs Date Temp Pulse Resp B/P (MAP) Pulse Ox O2 O2 Flow FiO2 Time Delivery Rate 09/12/18 Nasal 4.0 09:15 Cannula 09/12/18 98.1 71 21 128/58 97 08:00 (81) Intake and Output 09/11/18 09/11/18 09/12/18 1414:59 22:59 06:59 IntakeIntake Total 1100 ml 1000 ml OutputOutput Total 900 ml 1000 ml BalanceBalance 1100 ml -900 ml 0 ml Constitutional: non-verbal Psych: no complaints Head: normocephalic Respiratory: crackles/rales Cardiovascular: edema, systolic murmur Gastrointestinal: soft Results Result Diagram: 09/08/18 2310 09/12/18 0448 Results 24hrs Laboratory Tests Test 09/12/18 04:48 Sodium Level 151 H Potassium Level 3.7 Chloride Level 115 H Carbon Dioxide Level 27 Anion Gap 9 Blood Urea Nitrogen 83 H Creatinine 2.18 H Est Glomerular Filtrat Rate mL/min Glucose Level 126 Calcium Level 10.1 Medications Medication Current Medications Aspirin (Aspirin) 81 mg DAILY GTB Last administered on 09/12/18at 08:33; Admin Dose 81 MG; Start 09/09/18 at 09:00 Bisacodyl (Dulcolax) 10 mg DAILY PRN PO CONSTIPATION; Start 09/09/18 at 08:00 Donepezil HCl (Aricept) 5 mg DAILY GTB Last administered on 09/12/18 08:33; Admin Dose 5 MG; Start 09/09/18 at 09:00 Finasteride (Proscar) 5 mg DAILY GTB Last administered on 09/12/18at 08:33; Admin Dose 5 MG; Start 09/09/18 at 09:00 Folic Acid (Folic Acid) 1 mg DAILY GTB Last administered on 09/12/18at 08:33; Admin Dose 1 MG; Start 09/09/18 at 09:00 Metoprolol Succinate (Toprol Xl) 12.5 mg DAILY PO ; Start 09/09/18 at 09:00; Status Hold Midodrine (Proamatine) 2.5 mg TID@0600,1200,1800 GTB Last administered on 09/11/18at 08:09; Admin Dose 2.5 MG; Start 09/09/18 at 09:00 Acetaminophen (Tylenol Tab) 650 mg Q6H PRN GTB PAIN Last administered on 09/11/18at 22:12; Admin Dose 650 MG; Start 09/09/18 at 08:14 Lactulose (Enulose) 15 gm TID PRN GTB CONSTIPATION; Start 09/09/18 at 08:16 Magnesium Hydroxide (Milk Of Mag) 30 ml DAILY PRN GTB CONSTIPATION; Start 09/09/18 at 08:16 Metoprolol Tartrate (Lopressor) 25 mg BID GTB Last administered on 09/12/18 08:33; Admin Dose 25 MG; Start 09/09/18 at 21:00 Sodium Chloride 1,000 ml @ 100 mls/hr Q10H IV Last administered on 09/12/18 04:12; Admin Dose 100 MLS/HR; Start 09/09/18 at 10:30 Quetiapine Fumarate (Seroquel) 12.5 mg DAILY PRN PO AGITATION; Start 09/09/18 at 10:30 Quetiapine Fumarate (Seroquel) 200 mg HS PO Last administered on 09/11/18 22:12; Admin Dose 200 MG; Start 09/09/18 at 21:00 Sodium Bicarbonate (Sodium Bicarbonate Tab) 650 mg TID PO Last administered on 09/12/18 08:32; Admin Dose 650 MG; Start 09/09/18 at 13:00 Tamsulosin HCl (Flomax) 0.4 mg BID PO Last administered on 09/12/18 08:32; Admin Dose 0.4 MG; Start 09/09/18 at 10:30 Menthol/Methyl Salicylate (Baltazar Pineda) 1 applic TID TOP Last administered on 09/12/18 08:34; Admin Dose 1 APPLIC; Start 09/09/18 at 13:00 Piperacillin Sod/ Tazobactam Sod 50 ml @ 100 mls/hr Q8 IVPB ; Start 09/12/18 at 14:00 Doxycycline Hyclate 100 mg/ Sodium Chloride 250 ml @ 250 mls/hr Q12 IVPB Last administered on 09/12/18 11:29; Admin Dose 250 MLS/HR; Start 09/12/18 at 11:00 JANIA SCHWARZ MD Sep 12, 2018 12:03
[2018-09-12] MEDS: ALLOPURINOL 100 MG TAB GTB SCH (12:20)
[2018-09-12] MEDS: SEVELAMER CARBONATE 0.8 GM PKT GTB SCH ×2 (12:20→17:39)
[2018-09-12] MEDS: PIPER-TAZO 2.25 GM (PMX) 50 ML IVPB SCH ×2 (13:38→23:10)
[2018-09-12 14:20] VITALS: BP_SYST 122; BP_SYST 130; BP_DIAS 58; BP_DIAS 65; PULSE 73; PULSE 84; RESP 19
[2018-09-12 20:50] VITALS: BP 128/60; PULSE 74; RESP 18
[2018-09-12] MEDS: QUETIAPINE 100 MG TAB PO SCH (21:02)
[2018-09-13 02:33] VITALS: BP 146/63; PULSE 73; RESP 18
[2018-09-13] MEDS: SOD CHLORIDE 0.9% 1,000 ML IV SCH (03:21)
[2018-09-13] MEDS: PIPER-TAZO 2.25 GM (PMX) 50 ML IVPB SCH ×3 (05:07→22:38)
[2018-09-13] MEDS: MIDODRINE 2.5 MG TAB GTB SCH ×3 (06:00→18:18)
[2018-09-13 08:00] VITALS: BP 141/65; PULSE 100; RESP 20
[2018-09-13] MEDS: SEVELAMER CARBONATE 0.8 GM PKT GTB SCH (08:36)
[2018-09-13] MEDS: NA BICARBONATE 650 MG TAB PO SCH (08:37)
[2018-09-13] MEDS: FINASTERIDE 5 MG TAB GTB SCH (08:37)
[2018-09-13] MEDS: TAMSULOSIN (SR) 0.4 MG CAP PO SCH ×2 (08:37→21:39)
[2018-09-13] MEDS: FOLIC ACID 1 MG TAB GTB SCH (08:38)
[2018-09-13] MEDS: ALLOPURINOL 100 MG TAB GTB SCH (08:38)
[2018-09-13] MEDS: DONEPEZIL 5 MG TAB GTB SCH (08:38)
[2018-09-13] MEDS: ACETAMINOPHEN 325 MG TAB GTB PRN (08:39)
[2018-09-13] MEDS: ASPIRIN 81 MG TAB GTB SCH (08:39)
[2018-09-13] MEDS: METOPROLOL 25 MG TAB GTB SCH ×2 (08:39→21:39)
[2018-09-13] MEDS: BALSAM PERU/CASTOR OIL 60 GM TUBE TOP SCH ×2 (08:40→22:02)
[2018-09-13] MEDS: MENTHOL/METH SALICYLATE 30 GM OINT TOP SCH ×3 (08:40→22:02)
[2018-09-13] MEDS: DOXYCYCLINE 100 MG in SOD CHLORIDE 0.9% 250 ML IVPB SCH ×2 (08:40→21:38)
--- NOTE | 2018-09-13 09:24 | CONS ---
Consultation Date/Type/Reason Admit Date/Time Sep 09, 2018 at 00:34 Date/Time of Note DATE: 09/13/18 TIME: 09:20 Hx of Present Illness spoke with sosn again this morning . He is still in agreement with Hospice care.. Will continue to support them and answer any question concerning on- going level of care . Suggest dc soon per family request. Past Medical History Medical History: cancer, coronary artery disease, hypertension Home Meds Reported Medications Tramadol Hcl* (Ultram*) 50 Mg Tablet, 50 MG PO Q6H PRN for PAIN, TAB 09/09/18 Tamsulosin Hcl* (Flomax*) 0.4 Mg Cap.er.24h, 0.4 MG PO BID, CAP 09/09/18 Vitamin B Complex (B Complex # 1) 1 Each Tablet, 1 EACH PO DAILY, TAB 09/09/18 Sodium Bicarbonate (Na Bicarbonate) 650 Mg Tab, 650 MG PO TID, TAB 09/09/18 Quetiapine Fumarate* (Seroquel*) 200 Mg Tablet, 200 MG PO HS, #30 TAB 09/09/18 Quetiapine Fumarate* (Seroquel*) 25 Mg Tablet, 12.5 MG PO DAILY PRN for AGITATION, #60 TAB 09/09/18 Protein Supplement (Promod) 946 Ml Liquid, 30 ML PO TID 09/09/18 Omeprazole* (Omeprazole*) 40 Mg Capsule.dr, 40 MG PO DAILY, #30 CAP 09/09/18 Multivitamins (MVI ADULT) 10 Ml Soln, 30 ML G-TUBE DAILY 09/09/18 Multivitamins* (Theragran*) 1 Tab Tab, 1 TAB PO DAILY, TAB 09/09/18 Metoprolol Succinate* (Toprol XL*) 25 Mg Tab.sr.24h, 12.5 MG PO DAILY, #30 TAB 09/09/18 Melatonin (MELADOX) 3 Mg Tablet.er, 3 MG G-TUBE PRN for INSOMNIA, TAB 09/09/18 Magnesium Oxide* (Magnesium Oxide*) 400 Mg Tablet, 400 MG PO BID, TAB 09/09/18 Furosemide* (Furosemide*) 20 Mg Tablet, 20 MG PO DAILY, #60 TAB 09/09/18 Lactulose* (Lactulose*) 20 Gm/30 Ml Solution, 15 GM PO TID PRN for CONSTIPATION, ML 09/09/18 Folic Acid* (Folic Acid*) 1 Mg Tablet, 1 MG PO DAILY, TAB 09/09/18 Finasteride* (Finasteride*) 5 Mg Tablet, 5 MG PO DAILY, TAB 09/09/18 Bisacodyl* (Dulcolax*) 5 Mg Tablet.dr, 10 MG RECTAL DAILY PRN for CONSTIPATION, TAB 09/09/18 Magnesium Hydroxide* (Milk Of Magnesia*) 400 Mg/5 Ml Oral.susp, 30 ML PO DAILY PRN for CONSTIPATION, ML 09/09/18 Atorvastatin* (Atorvastatin*) 40 Mg Tablet, 20 MG PO QHS, #30 TAB 09/09/18 Aspirin* (Aspirin*) 325 Mg Tablet, 81 MG PO DAILY, TAB 09/09/18 Acetaminophen* (Acetaminophen*) 650 Mg Tablet, 650 MG PO Q6H PRN for PAIN, #30 TAB 09/09/18 Discontinued Reported Medications Midodrine HCl (Midodrine HCl) 2.5 Mg Tablet, 2.5 MG PO TID, TAB 09/09/18 Nitrofurantoin Monohyd Macrocr* (Macrobid*) 100 Mg Capsr, 100 MG PO BID, CAP 09/09/18 Donepezil* (Donepezil*) 5 Mg Tablet, 5 MG PO DAILY, #30 TAB 09/09/18 Medications Current Medications Aspirin (Aspirin) 81 mg DAILY GTB Last administered on 09/13/18at 08:39; Admin Dose 81 MG; Start 09/09/18 at 09:00 Bisacodyl (Dulcolax) 10 mg DAILY PRN PO CONSTIPATION; Start 09/09/18 at 08:00 Donepezil HCl (Aricept) 5 mg DAILY GTB Last administered on 09/13/18at 08:38; Admin Dose 5 MG; Start 09/09/18 at 09:00 Finasteride (Proscar) 5 mg DAILY GTB Last administered on 09/13/18at 08:37; Admin Dose 5 MG; Start 09/09/18 at 09:00 Folic Acid (Folic Acid) 1 mg DAILY GTB Last administered on 09/13/18at 08:38; Admin Dose 1 MG; Start 09/09/18 at 09:00 Metoprolol Succinate (Toprol Xl) 12.5 mg DAILY PO ; Start 09/09/18 at 09:00; Status Hold Midodrine (Proamatine) 2.5 mg TID@0600,1200,1800 GTB Last administered on 09/11/18 08:09; Admin Dose 2.5 MG; Start 09/09/18 at 09:00 Acetaminophen (Tylenol Tab) 650 mg Q6H PRN GTB PAIN Last administered on 09/13/18 08:39; Admin Dose 650 MG; Start 09/09/18 at 08:14 Lactulose (Enulose) 15 gm TID PRN GTB CONSTIPATION; Start 09/09/18 at 08:16 Magnesium Hydroxide (Milk Of Mag) 30 ml DAILY PRN GTB CONSTIPATION; Start 09/09/18 at 08:16 Metoprolol Tartrate (Lopressor) 25 mg BID GTB Last administered on 09/13/18 08:39; Admin Dose 25 MG; Start 09/09/18 at 21:00 Sodium Chloride 1,000 ml @ 100 mls/hr Q10H IV Last administered on 09/13/18 03:21; Admin Dose 100 MLS/HR; Start 09/09/18 at 10:30 Quetiapine Fumarate (Seroquel) 12.5 mg DAILY PRN PO AGITATION; Start 09/09/18 at 10:30 Quetiapine Fumarate (Seroquel) 200 mg HS PO Last administered on 09/12/18 21:02; Admin Dose 200 MG; Start 09/09/18 at 21:00 Sodium Bicarbonate (Sodium Bicarbonate Tab) 650 mg TID PO Last administered on 09/13/18 08:37; Admin Dose 650 MG; Start 09/09/18 at 13:00 Tamsulosin HCl (Flomax) 0.4 mg BID PO Last administered on 09/13/18 08:37; Admin Dose 0.4 MG; Start 09/09/18 at 10:30 Menthol/Methyl Salicylate (Baltazar Pineda) 1 applic TID TOP Last administered on 09/13/18 08:40; Admin Dose 1 APPLIC; Start 09/09/18 at 13:00 Piperacillin Sod/ Tazobactam Sod 50 ml @ 100 mls/hr Q8 IVPB Last administered on 09/13/18 05:07; Admin Dose 100 MLS/HR; Start 09/12/18 at 14:00 Doxycycline Hyclate 100 mg/ Sodium Chloride 250 ml @ 250 mls/hr Q12 IVPB Last administered on 09/13/18 08:40; Admin Dose 250 MLS/HR; Start 09/12/18 at 11:00 Sevelamer Carbonate (Renvela) 0.8 gm WITH MEALS GTB Last administered on 09/13/18 08:36; Admin Dose 0.8 GM; Start 09/12/18 at 12:30 Allopurinol (Zyloprim) 100 mg DAILY GTB Last administered on 09/13/18 08:38; Admin Dose 100 MG; Start 09/12/18 at 13:00 Allergies: Coded Allergies: No Known Allergy (Unverified , 09/08/18) Past Surgical History Past Surgical Hx: other Social History Alcohol Use: none Smoking Status: Never smoker Drug Use: none Exam/Review of Systems Exam Vitals Vital Signs Date Temp Pulse Resp B/P (MAP) Pulse Ox O2 O2 Flow FiO2 Time Delivery Rate 09/13/18 100.4 08:39 09/13/18 100 20 141/65 94 Nasal 08:00 (90) Cannula 09/13/18 3.0 04:22 Intake and Output 09/12/18 09/12/18 09/13/18 1515:00 23:00 07:00 IntakeIntake Total 300 ml 2225 ml 1050 ml OutputOutput Total 1200 ml BalanceBalance 300 ml 1025 ml 1050 ml Results Result Diagram: 09/12/18 0448 Medications Medication Current Medications Aspirin (Aspirin) 81 mg DAILY GTB Last administered on 09/13/18 08:39; Admin Dose 81 MG; Start 09/09/18 at 09:00 Bisacodyl (Dulcolax) 10 mg DAILY PRN PO CONSTIPATION; Start 09/09/18 at 08:00 Donepezil HCl (Aricept) 5 mg DAILY GTB Last administered on 09/13/18 08:38; Admin Dose 5 MG; Start 09/09/18 at 09:00 Finasteride (Proscar) 5 mg DAILY GTB Last administered on 09/13/18 08:37; Admin Dose 5 MG; Start 09/09/18 at 09:00 Folic Acid (Folic Acid) 1 mg DAILY GTB Last administered on 09/13/18 08:38; Admin Dose 1 MG; Start 09/09/18 at 09:00 Metoprolol Succinate (Toprol Xl) 12.5 mg DAILY PO ; Start 09/09/18 at 09:00; Status Hold Midodrine (Proamatine) 2.5 mg TID@0600,1200,1800 GTB Last administered on 09/11/18 08:09; Admin Dose 2.5 MG; Start 09/09/18 at 09:00 Acetaminophen (Tylenol Tab) 650 mg Q6H PRN GTB PAIN Last administered on 09/13/18 08:39; Admin Dose 650 MG; Start 09/09/18 at 08:14 Lactulose (Enulose) 15 gm TID PRN GTB CONSTIPATION; Start 09/09/18 at 08:16 Magnesium Hydroxide (Milk Of Mag) 30 ml DAILY PRN GTB CONSTIPATION; Start 09/09/18 at 08:16 Metoprolol Tartrate (Lopressor) 25 mg BID GTB Last administered on 09/13/18 08:39; Admin Dose 25 MG; Start 09/09/18 at 21:00 Sodium Chloride 1,000 ml @ 100 mls/hr Q10H IV Last administered on 09/13/18 03:21; Admin Dose 100 MLS/HR; Start 09/09/18 at 10:30 Quetiapine Fumarate (Seroquel) 12.5 mg DAILY PRN PO AGITATION; Start 09/09/18 at 10:30 Quetiapine Fumarate (Seroquel) 200 mg HS PO Last administered on 09/12/18 21:02; Admin Dose 200 MG; Start 09/09/18 at 21:00 Sodium Bicarbonate (Sodium Bicarbonate Tab) 650 mg TID PO Last administered on 09/13/18 08:37; Admin Dose 650 MG; Start 09/09/18 at 13:00 Tamsulosin HCl (Flomax) 0.4 mg BID PO Last administered on 09/13/18 08:37; Admin Dose 0.4 MG; Start 09/09/18 at 10:30 Menthol/Methyl Salicylate (Baltazar Pineda) 1 applic TID TOP Last administered on 09/13/18 08:40; Admin Dose 1 APPLIC; Start 09/09/18 at 13:00 Piperacillin Sod/ Tazobactam Sod 50 ml @ 100 mls/hr Q8 IVPB Last administered on 4/3/19at 05:07; Admin Dose 100 MLS/HR; Start 09/12/18 at 14:00 Doxycycline Hyclate 100 mg/ Sodium Chloride 250 ml @ 250 mls/hr Q12 IVPB Last administered on 09/13/18 08:40; Admin Dose 250 MLS/HR; Start 09/12/18 at 11:00 Sevelamer Carbonate (Renvela) 0.8 gm WITH MEALS GTB Last administered on 09/13/18 08:36; Admin Dose 0.8 GM; Start 09/12/18 at 12:30 Allopurinol (Zyloprim) 100 mg DAILY GTB Last administered on 09/13/18 08:38; Admin Dose 100 MG; Start 09/12/18 at 13:00 JANNA QUINONEZ Sep 13, 2018 09:24
[2018-09-13] MEDS ORDERED: PIPE2.254 IV (10:26)
[2018-09-13] MEDS ORDERED: DOXY100V IVPB (10:26)
[2018-09-13 14:20] VITALS: BP 119/58; PULSE 62; RESP 20
[2018-09-13 19:33] VITALS: BP 136/65; PULSE 77; RESP 20
[2018-09-13] MEDS ORDERED: GUAIFENESIN/DM 5ML CUP GTB PRN (23:00)
[2018-09-14] MEDS ORDERED: FUROSEMIDE 20 MG INJ IV ONE (01:00)
[2018-09-14 01:57] VITALS: BP 151/68; RESP 20
--- NOTE | 2018-09-14 02:00 | DS ---
DATE OF ADMISSION: 09/09/2018 DATE OF DISCHARGE: DISCHARGE DIAGNOSES: 1. Polymicrobial urosepsis. 2. Acute on chronic kidney injury, improved with hydration. 3. Severe dehydration. 4. Dysphagia, on G-tube feeding. 5. Renal cell carcinoma. 6. Chronic debilitation. 7. DNR code status, undergoing care of hospice. HOSPITAL COURSE: An 88-year-old male with multiple medical problems presented with altered mental st atus. The patient was initially febrile. He was found to have a contaminated urine. Urine culture grew E. coli and Pseudomonas aeruginosa. Blood culture also grew E. coli and coagulase negative stap h. The patient was initially treated with IV vancomycin and Zosyn. There was no clinical improvemen t during hospitalization except improvement in renal function. He remained quite lethargic and poorl y responsive. Multiple conferences were held with family members. I asked for palliative care consu ltation and Dr. Bruno and I met with all the children. They agreed with DNR code status and home hospice. They did not wish the patient to [facility]. The patient is now s table for discharge to home. I continued IV Zosyn and IV doxycycline at home. The patient will be i n the care of hospice once he is discharged. Dictated By: PEPE NULL/SARAH Conf#: [id number] DID#: [id number]
[2018-09-14 03:00] VITALS: BP 129/50
[2018-09-14] MEDS: MIDODRINE 2.5 MG TAB GTB SCH ×2 (06:00→12:00)
[2018-09-14] MEDS: PIPER-TAZO 2.25 GM (PMX) 50 ML IVPB SCH ×2 (06:28→13:47)
[2018-09-14 07:20] VITALS: BP 146/68; PULSE 91; RESP 20
[2018-09-14] MEDS: TAMSULOSIN (SR) 0.4 MG CAP PO SCH (09:52)
[2018-09-14] MEDS: METOPROLOL 25 MG TAB GTB SCH (09:53)
[2018-09-14] MEDS: ALLOPURINOL 100 MG TAB GTB SCH (09:53)
[2018-09-14] MEDS: DOXYCYCLINE 100 MG in SOD CHLORIDE 0.9% 250 ML IVPB SCH (09:54)
[2018-09-14] MEDS: MENTHOL/METH SALICYLATE 30 GM OINT TOP SCH ×2 (10:00→13:47)
[2018-09-14] MEDS: BALSAM PERU/CASTOR OIL 60 GM TUBE TOP SCH (10:00)
[2018-09-14 12:21] VITALS: BP 138/63; PULSE 73; RESP 21
[2018-09-14 14:05] VITALS: BP 142/61; PULSE 72; RESP 20
[2018-09-14] MEDS ORDERED: DOXYCYCLINE 100 MG TAB PO SCH (21:00)
== END 2018-09-14 16:30 | disposition hospice, home (50) | DRG 871 ==
LOC: E/R 22:54 → TEL 09-09 00:34 → PP2 09-09 01:40 → E/R 09-09 02:15 → PP2 09-09 03:58
PROVIDERS: ADMIT Internal Medicine; ATTEND Internal Medicine
DX: A41.9 Sepsis, unspecified organism (principal); G93.41 Metabolic encephalopathy; N13.6 Pyonephrosis; N17.9 Acute kidney failure, unspecified; E86.0 Dehydration; E87.5 Hyperkalemia; Z93.1 Gastrostomy status; E83.52 Hypercalcemia; E83.39 Other disorders of phosphorus metabolism; D64.9 Anemia, unspecified; I12.9 Hypertensive chronic kidney disease with stage 1 through stage 4 chronic kidney disease, or unspecified chronic kidney disease; N18.9 Chronic kidney disease, unspecified; N40.0 Benign prostatic hyperplasia without lower urinary tract symptoms; B96.20 Unspecified Escherichia coli [E. coli] as the cause of diseases classified elsewhere; Z66 Do not resuscitate; Z87.440 Personal history of urinary (tract) infections; Z85.528 Personal history of other malignant neoplasm of kidney
CPT/HCPCS: 36415; 71045; 74176; 80048; 80053; 80202; 81001; 82550; 83690; 83735; 83970; 84100; 84155; 84300; 84484; 84560; 85025; 87081; 87086; 89190; 93005; 94664; 96365; 96375; J0692; J1940; J1956; J2405; J2543; J3370; J7030; J7040; J7050